=== PATIENT | male | born 1955 | race Hispanic/Latino ===

== ENCOUNTER 2017-01-28 00:27 | Emergency (ER) | payer MEDICARE, MEDICAID ==
[2017-01-28 01:55] VITALS: TEMP 97.5
[2017-01-28 01:56] VITALS: BMI 33.2
[2017-01-28] MEDS ORDERED: Sodium Chloride 0.9% 1,000 ML IV STA (02:27)
[2017-01-28] MEDS ORDERED: Morphine 2 mg/ml ISec IVP STA ×2 (02:27→06:29)
--- NOTE | 2017-01-28 02:47 | ED PDOC ---
Arrival/HPI - General Chief Complaint: Male Genitourinary Time Seen by Provider: 01/28/17 02:13 Historian: Patient - History of Present Illness Narrative History of Present Illness (Text): 01/28/17 02:44 Tuan Davison is a 61 year old male, with a history of CAD, CHF, hypertension, COPD, and diverticulitis, presents to the emergency department complaining of bilateral flank pain for past 3 days. Reports that symptoms are different from diverticulitis symptoms. Reports of occasional dysuria. Denies fever, chills, headache, dizziness, nausea, vomiting, diarrhea, abdominal pain, or any other complaints at this time. Time/Duration: < week (2-3 days ) Symptom Onset: Gradual Symptom Course: Unchanged Severity Level: Mild Activities at Onset: Light Context: Home Past Medical History - Provider Review Nursing Documentation Reviewed: Yes - Infectious Disease Hx of Infectious Diseases: None - Tetanus Immunization Tetanus Immunization: Unknown - Reproductive Currently : No - Cardiac Hx Cardiac Disorders: Yes Hx Angina: Yes Hx Congestive Heart Failure: Yes Hx Hypertension: Yes - Pulmonary Hx Respiratory Disorders: Yes Hx Chronic Obstructive Pulmonary Disease (COPD): Yes - Neurological Hx Neurological Disorder: No - HEENT Hx HEENT Disorder: No - Renal Hx Renal Disorder: Yes Hx Kidney Stones: Yes - Endocrine/Metabolic Hx Endocrine Disorders: Yes Hx Diabetes Mellitus Type 2: (pt denies) - Hematological/Oncological Hx Blood Disorders: Yes Hx Hepatitis C: Yes - Integumentary Hx Dermatological Disorder: No - Musculoskeletal/Rheumatological Hx Musculoskeletal Disorders: Yes Hx Back Pain: Yes Hx Falls: No - Gastrointestinal Hx Gastrointestinal Disorders: Yes Hx Gastroesophageal Reflux: Yes - Genitourinary/Gynecological Hx Genitourinary Disorders: No - Psychiatric Hx Psychophysiologic Disorder: Yes Hx Anxiety: Yes Hx Bipolar Disorder: Yes Hx Depression: Yes Hx Substance Use: No - Past Surgical History Past Surgical History: Non-Contributing - Surgical History Hx Appendectomy: Yes Hx Tonsillectomy: Yes Other/Comment: Tonsillectomy - Anesthesia Hx Anesthesia: Yes Hx Anesthesia Reactions: No Hx Malignant Hyperthermia: No - Suicidal Assessment Feels Threatened In Home Enviroment: No Family/Social History - Physician Review Nursing Documentation Reviewed: Yes Family/Social History: No Known Family HX Smoking Status: Light Smoker < 10 Cigarettes Daily Hx Alcohol Use: No Hx Substance Use: No Hx Substance Use Treatment: No Allergies/Home Meds Allergies/Adverse Reactions: Allergies No Known Allergies Allergy (Verified 01/28/17 01:54) Home Medications: Home Meds Medication Instructions Recorded Confirmed Lisinopril/Hydrochlorothiazide 12.5 mg PO DAILY 09/13/14 11/07/16 [Lisinopril-Hctz 20-12.5 mg Tab] Methylphenidate HCl [Ritalin] 60 mg PO DAILY 09/13/14 11/07/16 Montelukast [Singulair] 10 mg PO HS 09/13/14 11/07/16 diaZEpam [Valium] 10 mg PO BID 09/14/15 11/07/16 fluvoxaMINE [Luvox] 100 mg PO BID 09/14/15 11/07/16 Enalapril Maleate [Vasotec] 10 mg PO DAILY 06/10/16 11/07/16 Review of Systems - Physician Review All systems were reviewed & negative as marked: Yes - Review of Systems Constitutional: Normal. absent: Fatigue, Fevers Respiratory: Normal. absent: SOB, Cough Cardiovascular: Normal. absent: Chest Pain Musculoskeletal: Other (bilateral flank pain ) Neurological: Normal. absent: Headache, Dizziness Psychiatric: Normal Physical Exam Vital Signs Reviewed: Yes Vital Signs Temp Pulse Resp BP Pulse Ox 01/28/17 06:59 55 L 18 152/88 H 100 01/28/17 03:30 56 L 18 142/74 99 01/28/17 01:55 97.5 F L 55 L 20 119/77 98 Temperature: Afebrile Blood Pressure: Normal Pulse: Regular Respiratory Rate: Normal Appearance: Positive for: Well-Appearing, Non-Toxic, Comfortable Pain Distress: None Mental Status: Positive for: Alert and Oriented X 3 - Systems Exam Head: Present: Atraumatic, Normocephalic Pupils: Present: PERRL Extroacular Muscles: Present: EOMI Conjunctiva: Present: Normal Respiratory/Chest: Present: Clear to Auscultation, Good Air Exchange. No: Respiratory Distress, Accessory Muscle Use Cardiovascular: Present: Regular Rate and Rhythm, Normal S1, S2. No: Murmurs Abdomen: Present: Normal Bowel Sounds. No: Tenderness, Distention, Peritoneal Signs, Rebound, Guarding Back: Present: CVA Tenderness (b/l CVA tenderness ) Neurological: Present: GCS=15, CN II-XII Intact, Speech Normal, Motor Func Grossly Intact, Normal Sensory Function Skin: Present: Warm, Dry, Normal Color. No: Rashes Psychiatric: Present: Alert, Oriented x 3, Normal Insight, Normal Concentration Medical Decision Making ED Course and Treatment: 01/28/17 02:48 Impression: A 61 year old male who presents to the emergency department complaining of bilateral flank pain for past 3 days. Plan: -- CT abdomen pelvis -- Labs -- Morphine -- IV fluids -- Urinalysis -- Reassess and disposition Progress Notes 01/28/17 05:50 CT abdomen pelvis reviewed: IMPRESSION: 1. Cholelithiasis. A faint gallstone is noted measuring 22 mm. 2. Borderline retroperitoneal periaortic and pericaval adenopathy and mild pelvic adenopathy along the lateral pelvic sidewalls which is similar to the prior study of 12/07/2016. Borderline inguinal adenopathy is also noted. 3. Mild colonic diverticulosis without diverticulitis. 01/28/17 07:17 Case was d/w PMD .Accepts to his service for further management. - Lab Interpretations Lab Results: 01/28/17 03:16 01/28/17 03:16 Lab Results 01/28/17 06:00: Urine Color Yellow, Urine Appearance Clear, Urine pH 6.0, Ur Specific Friedens 1.020, Urine Protein Negative, Urine Glucose (UA) Negative, Urine Ketones Negative, Urine Blood Negative, Urine Nitrate Negative, Urine Bilirubin Negative, Urine Urobilinogen 0.2, Ur Leukocyte Esterase Negative 01/28/17 03:16: WBC 13.0 H, RBC 4.59, Hgb 14.5, Hct 40.7 L, MCV 88.7, MCH 31.6, MCHC 35.6, RDW 14.2, Plt Count 199, MPV 10.0, Sodium 140, Potassium 3.6, Chloride 100, Carbon Dioxide 31, Anion Gap 13, BUN 23 H, Creatinine 0.8, Est GFR ( Amer) > 60, Est GFR (Non-Af Amer) > 60, Random Glucose 96, Calcium 10.0, Total Bilirubin 0.5, AST 29, ALT 26, Alkaline Phosphatase 59, Total Protein 6.9, Albumin 4.1, Globulin 2.9, Albumin/Globulin Ratio 1.4, Lipase 68 I have reviewed the lab results: Yes - RAD Interpretation Narrative RAD Interpretations (Text): EXAM: CT Abdomen and Pelvis Without Intravenous Contrast. FINDINGS: Lower thorax: Minimal bibasilar atelectasis or scar. ABDOMEN: Liver: Unremarkable. Gallbladder and bile ducts: There is a faint gallstone in the gallbladder measuring 22 mm. No ductal dilation. Pancreas: Unremarkable. No ductal dilation. Spleen: Splenic cyst with some peripheral calcifications measuring 15 mm which is similar. Adrenals: Unremarkable. No mass. Kidneys and ureters: There are bilateral renal cysts measuring up to 10.4 cm on the right. No obstructing stones. No hydronephrosis. Stomach and bowel: Mild colonic diverticulosis without diverticulitis. No obstruction. Appendix: There are no changes of appendicitis. A normal appendix is not seen. PELVIS: Bladder: Unremarkable. No stones. Reproductive: Unremarkable as visualized. ABDOMEN and PELVIS: Intraperitoneal space: Unremarkable. No free air. No significant fluid collection. Bones/joints: Degenerative spondylosis of the lumbar spine. No acute fracture. No dislocation. Soft tissues: Unremarkable. Vasculature: Unremarkable. No abdominal aortic aneurysm. Lymph nodes: Borderline retroperitoneal periaortic and pericaval adenopathy which is similar to the prior study. Mild pelvic adenopathy along the lateral pelvic sidewalls which is similar to the prior study. Borderline inguinal adenopathy, similar. IMPRESSION: 1. Cholelithiasis. A faint gallstone is noted measuring 22 mm. 2. Borderline retroperitoneal periaortic and pericaval adenopathy and mild pelvic adenopathy along the lateral pelvic sidewalls which is similar to the prior study of 12/07/2016. Borderline inguinal adenopathy is also noted. 3. Mild colonic diverticulosis without diverticulitis. Radiology Orders: 01/28/17 02:25 ABD & PELVIS W/O PO OR IV CONT [CT] Stat Replenishment Buyer: Radiologist - Medication Orders Current Medication Orders: Discontinued Medications Sodium Chloride (Sodium Chloride 0.9%) 1,000 mls @ 999 mls/hr IV .Q1H1M STA Stop: 01/28/17 03:27 Last Admin: 01/28/17 03:15 Dose: 999 MLS/HR eMAR Start Stop Document 01/28/17 03:15 JG (Rec: 01/28/17 03:15 JG [id number]) Intravenous Solution Start Date 03/21/17 Start Time 03:15 End Date 01/28/17 End time 04:16 Total Infusion Time 61 Morphine Sulfate (Morphine) 2 mg IVP STAT STA Stop: 01/28/17 02:28 Last Admin: 01/28/17 03:20 Dose: 2 MG MAR Pain Assessment Document 01/28/17 03:20 FJA (Rec: 01/28/17 03:22 [id number][facility] Pain Reassessment Is this a pain reassessment? No Sleep Is patient sleeping during reassessment? No Presence of Pain Presence of Pain Yes Pain Scale Used Pain Scale Used Numeric Location Left, Right or Bilateral Bilateral Pain Location Body Site Lumbar Description Description Constant Intensity of Pain at present 7 Acceptable Level of Pain 0 Variations/Patterns constant Pain Behavior Guarding Aggravating Factors Changing Position IVP Administration Document 01/28/17 03:20 FJ (Rec: 01/28/17 03:22 [id number]) Charges for Administration # of IVP Administrations 1 Morphine Sulfate (Morphine) 2 mg IVP STAT STA Stop: 01/28/17 06:30 Last Admin: 01/28/17 06:44 Dose: 2 MG MAR Pain Assessment Document 01/28/17 06:44 JAIDEN (Rec: 01/28/17 06:44 [id number] Pain Reassessment Is this a pain reassessment? No Sleep Is patient sleeping during reassessment? No Presence of Pain Presence of Pain Yes IVP Administration Document 01/28/17 06:44 JAIDEN (Rec: 01/28/17 06:44 [id number] Charges for Administration # of IVP Administrations 1 - Scribe Statement The provider has reviewed the documentation as recorded by the Christine Gomez Provider Attestation: All medical record entries made by the Christine were at my direction and personally dictated by me. I have reviewed the chart and agree that the record accurately reflects my personal performance of the history, physical exam, medical decision making, and the department course for this patient. I have also personally directed, reviewed, and agree with the discharge instructions and disposition. Disposition/Present on Arrival - Present on Arrival Any Indicators Present on Arrival: No History of DVT/PE: No History of Uncontrolled Diabetes: No Urinary Catheter: No History of Decub. Ulcer: No History Surgical Site Infection Following: None - Disposition Have Diagnosis and Disposition been Completed?: Yes Diagnosis: Intractable back pain, Adenopathy Disposition: HOSPITALIZED Disposition Time: 07:17 Patient Plan: Observation Patient Problems: Current Active Problems Problem Status Diagnosed Constipation, acute Acute Intractable abdominal pain Acute Leukocytosis Acute Condition: STABLE
[2017-01-28 03:39] LABS: HEMATOCRIT 40.7 % (42.0-52.0); MEAN CELL VOLUME 88.7 fL (80.0-105.0); MEAN CORPUSCULAR HEMOGLOBIN 31.6 pg (25.0-35.0); MEAN CORPUSCULAR HGB CONC 35.6 g/dl (31.0-37.0); RED CELL DISTRIBUTION WIDTH 14.2 % (11.5-14.5)
[2017-01-28 03:44] LABS: ALB/GLOB RATIO 1.4 (1.1-1.8); ALKALINE PHOSPHATASE 59 U/L (38-133); ALT/SGPT 26 U/L (7-56); AST/SGOT 29 U/L (15-59); BILIRUBIN,TOTAL 0.5 mg/dL (0.2-1.3); BLOOD UREA NITROGEN 23 mg/dL (7-21); CARBON DIOXIDE 31 mmol/L (21-33); CHLORIDE 100 mmol/L (95-110); GFR AFRICAN-AMERICAN > 60; GLUCOSE,RANDOM 96 mg/dL (70-110); LIPASE 68 U/L (23-300); POTASSIUM 3.6 mmol/L (3.6-5.0); SODIUM 140 mmol/L (132-148); TOTAL PROTEIN 6.9 g/dL (5.8-8.3)
[2017-01-28 06:13] LABS: URINE BILIRUBIN NEGATIVE (NEGATIVE); URINE BLOOD NEGATIVE (NEGATIVE); URINE GLUCOSE (UA) NEGATIVE (NEGATIVE); URINE KETONE NEGATIVE (NEGATIVE); URINE LEUKOCYTE ESTERASE NEGATIVE Leu/uL (NEGATIVE); URINE PROTEIN NEGATIVE mg/dL (<30 mg/dL); URINE UROBILINOGEN 0.2 E.U./dL (<1 E.U./dL)
[2017-01-28 06:17] LABS: URINE APPEARANCE CLEAR (CLEAR); URINE COLOR YELLOW (YELLOW)
[2017-01-28 06:59] VITALS: RESP 18
[2017-01-28 07:44] VITALS: BP 147/101; PULSE 62; O2SAT 97
--- NOTE | 2017-01-28 12:29 | HP ---
CHIEF COMPLAINT AND HISTORY OF PRESENT ILLNESS: This is a 61-year-old male who is coming into the [facility] with complaints of flank pain. He says that he has this pain on and off. He has no complaint s of any headaches, no dizziness, no nausea, no vomiting, no dysuria, frequency. No weakness in the arms or the legs. No fevers or chills. He says the pain is better. He has a history of coronary di sease, CHF, hypertension, COPD. The patient also has anxiety and depression. The patient has a hist ory of lymph nodes and with a mild elevation in white count, he was advised to get evaluated. He wis hes to leave the hospital and to do an outpatient followup. I will give him the number for Dr. Blair for further management of his adenopathy. He has had a colonoscopy that was negative. He says he f eels well. He is ready to go home. ALLERGIES: No known drug allergies. HOME MEDICATIONS: Have been reviewed. 1. Lisinopril/hydrochlorothiazide. 2. Ritalin. 3. Singulair. 4. Valium. PAST MEDICAL HISTORY: 1. Nephrolithiasis. 2. COPD. 3. GERD. 4. Bipolar disorder. 5. Hypertension. 6. Hypogonadism. 7. Splenomegaly. 8. Adenopathy. 9. Hepatitis C. 10. Leukocytosis. 11. Diverticulitis. PAST SURGICAL HISTORY: He has had an: 1. Appendectomy. 2. Tonsillectomy. SOCIAL HISTORY: He smokes half a pack per day. He was advised to quit smoking. He is disabled, he is not working. PHYSICAL EXAMINATION: VITAL SIGNS: He has a temperature of , pulse of 62, blood pressure 147/101, respirations 18, O2 saturation 97%, height is 6 feet, weight is 245 pounds, BMI is 33.2. GENERAL: Patient lying in bed, flat, and in no apparent distress. HEAD AND NECK EXAM: Atraumatic, normocephalic. Conjunctivae are pink. Throat clear and mouth with moist mucosa. Oropharynx benign. EYES: Extraocular movements are intact. PERRLA. NECK: Supple. No JVD, thyromegaly, or adenopathy. No bruits. HEART: S1 and S2 regular rate and rhythm. No murmurs, rubs, or gallops. LUNGS: Clear to auscultation bilaterally. No wheezing rales or rhonchi appreciated. No retraction s on exam. ABDOMEN: Soft, nontender, nondistended. Bowel sounds are positive in all quadrants. No rebound. No hepatosplenomegaly. EXTREMITIES: No cyanosis, clubbing, or edema. NEURO: No facial asymmetry, tongue is midline, no uvula deviation. Power is 5/5 in upper extremity and 5/5 in lower extremity. Sensation is normal in upper extremity and lower extremity. PSYCH: Awake, alert, oriented x3. No anxiety or depression symptoms. Good insight. Normal affec t. : No CVA tenderness VASCULAR: 2+ pulses in carotid and pedal pulses. SKIN: No erythema or abnormal nodules noted. SPINE: Normal curvature. LYMPHADENOPATHY: No anterior cervical or posterior cervical adenopathy. No inguinal adenopathy. LABORATORY DATA: White count of 13. His lab history shows that his white count has been elevated si nce 07/2015. Chemistry shows a sodium of 140, creatinine is 0.8. His urine shows blood that is negative, nitrites negative, bilirubin is negative. CT of the abdomen done and shows cholelithiasis, there is borderline retroperitoneal, periaortic and pelvic adenopathy. It is similar to the prior study in 11/2016. ASSESSMENT: 1. Abdominal adenopathy. 2. Hepatitis C. 3. Gastroesophageal reflux disease. 4. Chronic obstructive pulmonary disease. 5. Nephrolithiasis. 6. Bipolar disorder. 7. Hypertension. 8. Hypogonadism. 9. Splenomegaly. PLAN: The patient is currently comfortable. The patient is going to be discharged home to follow up as an outpatient. I did give him the number for Dr. Blair. The patient has adenopathy with leukocy tosis, unknown etiology. He has had a colonoscopy. The patient is currently comfortable. He is goi ng to continue his home medications at home. Layo Kaur MD cc: [id number] TT: 01/28/2017 12:29:01
--- NOTE | 2017-01-28 15:58 | CT ---
PROCEDURE: CT Abdomen and Pelvis without intravenous contrast HISTORY: flank pain COMPARISON: 12/07/2016. CT abdomen and pelvis. TECHNIQUE: Unenhanced study. Neither oral nor intravenous contrast administered. Radiation dose: Total exam DLP = 1192.60 mGy-cm. FINDINGS: LOWER THORAX: Unremarkable. LIVER: Unremarkable. No gross lesion or ductal dilatation. GALLBLADDER AND BILE DUCTS: Cholelithiasis without CT evidence of acute cholecystitis. PANCREAS: Unremarkable. No gross lesion or ductal dilatation. SPLEEN: Top-normal spleen. Partially calcified simple cysts reyes again identified. ADRENALS: Unremarkable. No mass. KIDNEYS AND URETERS: Unremarkable. No hydronephrosis. No solid mass. Incidental finding(s): Stable bilateral renal cysts the largest projects off the lower pole of the right kidney measuring 7.8 cm. VASCULATURE: Unremarkable. No aortic aneurysm. BOWEL: Unremarkable. No obstruction. No gross mural thickening. Diverticulosis without an acute inflammatory component or other associated pathologic process. APPENDIX: Prior appendectomy. PERITONEUM: Unremarkable. No free fluid. No free air. LYMPH NODES: Stable retroperitoneal pelvic and bilateral inguinal lymphadenopathy. BLADDER: Unremarkable. REPRODUCTIVE: Unremarkable. BONES: Stable 1 stable level degenerative change. OTHER FINDINGS: None. IMPRESSION: No acute findings related to/accounting for the clinical presentation. No significant interval change compared to the prior examination(s). Concordant results (preliminary interpretation) provided by [facility]. Procedure Completed: 04:15. Preliminary ([facility]) Report: Dictated and Authenticated: 05:22. Final Interpretation: 15:56. January 28, 2017.
== END 2017-01-28 08:24 | disposition short-term general hospital (02) ==
LOC: ED 00:27 → UNDOADMOB 07:18 → ERH 07:18 → ED 08:24
DX: M54.9 Dorsalgia, unspecified (principal); R59.9 Enlarged lymph nodes, unspecified; J44.9 Chronic obstructive pulmonary disease, unspecified; I10 Essential (primary) hypertension; F17.210 Nicotine dependence, cigarettes, uncomplicated
CPT/HCPCS: 74176; 80053; 81003; 83690; 85027; 96361; 96374; 96376; 99284; J2270; J7040

== ENCOUNTER 2017-04-23 12:00 | Emergency (ER) | payer MEDICARE, MEDICAID ==
[2017-04-23 12:01] VITALS: BMI 33.2
[2017-04-23 12:15] VITALS: BP 150/90; PULSE 64; RESP 16; TEMP 97.5; O2SAT 96
--- NOTE | 2017-04-23 12:22 | ED PDOC ---
Arrival/HPI - General Chief Complaint: Back Pain Time Seen by Provider: 04/23/17 12:05 Historian: Patient - History of Present Illness Narrative History of Present Illness (Text): 04/23/17 12:10 62 y/o male, pmh including htn/chronic lower back pain/diverticulitis/gall stone , nkda, c/o chronic lower back pain and out of percocet 10/325. Pt. stated that he has chronic lower back pain, controlled with the percocet 10/325, out of the percocet with the last dose yesterday, no new injury or fall, no numbness or tingling, no urinary bowel incontinence or retention, no urinary symptoms, no other medical or psychological complaints. Past Medical History - Provider Review Nursing Documentation Reviewed: Yes - Infectious Disease Hx of Infectious Diseases: None - Tetanus Immunization Tetanus Immunization: Unknown - Reproductive Currently : No - Cardiac Hx Cardiac Disorders: Yes Hx Angina: Yes Hx Congestive Heart Failure: Yes Hx Hypertension: Yes - Pulmonary Hx Respiratory Disorders: Yes Hx Chronic Obstructive Pulmonary Disease (COPD): Yes - Neurological Hx Neurological Disorder: No - HEENT Hx HEENT Disorder: No - Renal Hx Renal Disorder: Yes Hx Kidney Stones: Yes - Endocrine/Metabolic Hx Endocrine Disorders: Yes Hx Diabetes Mellitus Type 2: (pt denies) - Hematological/Oncological Hx Blood Disorders: Yes Hx Hepatitis C: Yes - Integumentary Hx Dermatological Disorder: No - Musculoskeletal/Rheumatological Hx Musculoskeletal Disorders: Yes Hx Back Pain: Yes Hx Falls: No - Gastrointestinal Hx Gastrointestinal Disorders: Yes Hx Gastroesophageal Reflux: Yes - Genitourinary/Gynecological Hx Genitourinary Disorders: No - Psychiatric Hx Psychophysiologic Disorder: Yes Hx Anxiety: Yes Hx Bipolar Disorder: Yes Hx Depression: Yes Hx Substance Use: No - Past Surgical History Past Surgical History: Non-Contributing - Surgical History Hx Appendectomy: Yes Hx Tonsillectomy: Yes Other/Comment: Tonsillectomy - Anesthesia Hx Anesthesia: Yes - Suicidal Assessment Feels Threatened In Home Enviroment: No Family/Social History - Physician Review Nursing Documentation Reviewed: Yes Family/Social History: Unknown Family HX Smoking Status: Light Smoker < 10 Cigarettes Daily Hx Alcohol Use: No Hx Substance Use: No Hx Substance Use Treatment: No Allergies/Home Meds Allergies/Adverse Reactions: Allergies No Known Allergies Allergy (Verified 01/28/17 01:54) Home Medications: Home Meds Medication Instructions Recorded Confirmed Lisinopril/Hydrochlorothiazide 12.5 mg PO DAILY 09/13/14 11/07/16 [Lisinopril-Hctz 20-12.5 mg Tab] Methylphenidate HCl [Ritalin] 60 mg PO DAILY 09/13/14 11/07/16 Montelukast [Singulair] 10 mg PO HS 09/13/14 11/07/16 diaZEpam [Valium] 10 mg PO BID 09/14/15 11/07/16 fluvoxaMINE [Luvox] 100 mg PO BID 09/14/15 11/07/16 Enalapril Maleate [Vasotec] 10 mg PO DAILY 06/10/16 11/07/16 Review of Systems - Review of Systems Constitutional: absent: Fatigue, Fevers Eyes: absent: Vision Changes ENT: absent: Hearing Changes Respiratory: absent: SOB, Cough Cardiovascular: absent: Chest Pain Gastrointestinal: absent: Abdominal Pain, Diarrhea, Nausea, Vomiting Musculoskeletal: Back Pain. absent: Arthralgias, Neck Pain, Joint Swelling, Myalgias Physical Exam Vital Signs Reviewed: Yes Vital Signs Temp Pulse Resp BP Pulse Ox 04/23/17 12:11 97.5 F L 64 16 150/90 96 Temperature: Afebrile Blood Pressure: Normal Pulse: Regular Respiratory Rate: Normal Appearance: Positive for: Well-Appearing, Non-Toxic, Comfortable Pain Distress: Severe Mental Status: Positive for: Alert and Oriented X 3 - Systems Exam Head: Present: Atraumatic, Normocephalic Pupils: Present: PERRL Extroacular Muscles: Present: EOMI Conjunctiva: Present: Normal Mouth: Present: Moist Mucous Membranes Neck: Present: Normal Range of Motion Respiratory/Chest: Present: Clear to Auscultation, Good Air Exchange. No: Respiratory Distress, Accessory Muscle Use Cardiovascular: Present: Regular Rate and Rhythm, Normal S1, S2. No: Murmurs Abdomen: Present: Normal Bowel Sounds. No: Tenderness, Distention, Peritoneal Signs Back: Present: Normal Inspection, Other (Thoracci to LS spine: no midline tenderness or step off, FROM without limitation, sensation intact, motor 5/5, no saddling gait, no rash or erythematous. ). No: CVA Tenderness, Midline Tenderness, Paraspinal Tenderness, Pain with Leg Raise, Decubitus Ulcer Upper Extremity: Present: Normal Inspection. No: Cyanosis, Edema Lower Extremity: Present: Normal Inspection. No: Edema Neurological: Present: GCS=15, CN II-XII Intact, Speech Normal Skin: Present: Warm, Dry, Normal Color. No: Rashes Psychiatric: Present: Alert, Oriented x 3, Normal Insight, Normal Concentration Medical Decision Making ED Course and Treatment: 04/23/17 12:38 -I reviewed the [facility] that the patient has over 3 percocets and multiple valium prescriptions. Pt. has no signs of withdrawal in the ER. -I will treat the acute pain with toradol/percocet 10/325 and lidoderm, discharge home with nsaid and lidoderm patch. -Discharge home with mobic, lidoderm patch, follow up with your own pmd Dr. Whaley for follow up regarding about the pain including referring to pain management, return to the ER for any new or worsening signs or symptoms. 04/23/17 13:21 -Pt. feels better and wants to be discharged home, I advised outpatient follow up. - Medication Orders Current Medication Orders: Discontinued Medications Ketorolac Tromethamine (Toradol) 60 mg IM STAT STA Stop: 04/23/17 12:36 Last Admin: 04/23/17 12:51 Dose: 60 mg Lidocaine (Lidoderm) 1 ea TD STAT STA Stop: 04/23/17 12:34 Last Admin: 04/23/17 13:02 Dose: 1 ea Oxycodone/Acetaminophen (Percocet 10/325 Mg Tab) 1 tab PO STAT STA Stop: 04/23/17 12:28 Last Admin: 04/23/17 12:49 Dose: 1 tab - PA / [employer] / Resident Statement /DO has reviewed & agrees with the documentation as recorded. Disposition/Present on Arrival - Present on Arrival Any Indicators Present on Arrival: No History of DVT/PE: No History of Uncontrolled Diabetes: No Urinary Catheter: No History of Decub. Ulcer: No History Surgical Site Infection Following: None - Disposition Have Diagnosis and Disposition been Completed?: Yes Diagnosis: Chronic lower back pain, Pain management Disposition Time: 12:40 Patient Plan: Discharge Patient Problems: Current Active Problems Problem Status Onset Chronic lower back pain Acute Pain management Acute Condition: IMPROVED Additional Instructions: Discharge home with mobic, lidoderm patch, follow up with your own pmd Dr. Choundry for follow up regarding about the pain including referring to pain management, return to the ER for any new or worsening signs or symptoms. Prescriptions: Lidocaine 5% [Lidoderm] 1 patch TOP DAILY PRN #14 patch PRN Reason: Other Meloxicam [Mobic] 15 mg PO DAILY PRN #14 tab PRN Reason: Other Referrals: Layo Kaur MD [Primary Care Provider] - Follow up with primary Alejandra Roberts MD [Staff Provider] - Follow up with primary Forms: WORK NOTE
[2017-04-23] MEDS ORDERED: Oxycodone/Acetaminophen 10/325 mg Tab PO STA (12:27)
[2017-04-23] MEDS ORDERED: Lidocaine 5% Patch TD STA (12:33)
== END 2017-04-23 13:39 | disposition home or self-care (01) ==
LOC: ED 12:00
DX: M54.5 Low back pain (principal); G89.29 Other chronic pain
CPT/HCPCS: 96372; 99281; J1885

== ENCOUNTER 2017-05-05 09:53 | Observation (INO) | payer MEDICARE, MEDICAID ==
[2017-05-05 09:53] VITALS: BMI 33.2
[2017-05-05] MEDS ORDERED: Oxycodone/Acetaminophen 5/325 mg Tab PO STA ×2 (10:27→14:45)
--- NOTE | 2017-05-05 11:09 | RAD ---
HISTORY: weakness COMPARISON: 12/07/2016 FINDINGS: LUNGS: No active pulmonary disease. PLEURA: No significant pleural effusion identified, no pneumothorax apparent. CARDIOVASCULAR: Mild cardiomegaly OSSEOUS STRUCTURES: No significant abnormalities. VISUALIZED UPPER ABDOMEN: Normal. OTHER FINDINGS: None. IMPRESSION: No active disease.
[2017-05-05 11:15] LABS: ADD MANUAL DIFF? NO
[2017-05-05 11:19] LABS: BASO # 0.01 K/mm3 (0.0-2.0); BASO % 0.1 % (0.0-3.0); EOS # 0.2 (0.0-0.7); EOS % 1.1 % (1.5-5.0); GRAN # 5.11 (1.4-6.5); GRAN % 38.4 % (50.0-68.0); HEMATOCRIT 44.9 % (42.0-52.0); LYMPH # 7.3 (1.2-3.4); LYMPH % 54.5 % (22.0-35.0); MEAN CELL VOLUME 88.4 fL (80.0-105.0); MEAN CORPUSCULAR HEMOGLOBIN 31.5 pg (25.0-35.0); MEAN CORPUSCULAR HGB CONC 35.6 g/dl (31.0-37.0); MEAN PLATELET VOLUME 9.7 fl (7.0-11.0); MONO # 0.8 (0.1-0.6); MONO % 5.9 % (1.0-6.0); PLATELET COUNT 174 10^3/uL (120.0-450.0); RED CELL DISTRIBUTION WIDTH 14.6 % (11.5-14.5); WHITE BLOOD COUNT 13.3 10^3/ul (4.5-11.0)
[2017-05-05 11:28] LABS: CHLORIDE 105 mmol/L (98-107)
[2017-05-05 11:30] LABS: ALB/GLOB RATIO 1.5 (1.1-1.8); ALKALINE PHOSPHATASE 72 U/L (38-133); ALT/SGPT 38 U/L (7-56); AST/SGOT 37 U/L (15-59); BILIRUBIN,TOTAL 0.7 mg/dL (0.2-1.3); BLOOD UREA NITROGEN 24 mg/dL (7-21); CALCIUM 10.5 mg/dL (8.4-10.5); CARBON DIOXIDE 27 mmol/L (21-33); GFR AFRICAN-AMERICAN > 60; GLUCOSE,RANDOM 135 mg/dL (70-110); LIPASE 66 U/L (23-300); POTASSIUM 3.6 mmol/L (3.6-5.0); SODIUM 141 mmol/L (132-148); TOTAL PROTEIN 7.5 g/dL (5.8-8.3)
[2017-05-05 11:46] LABS: TROPONIN I < 0.01 ng/mL
[2017-05-05 13:38] LABS: URINE BILIRUBIN NEGATIVE (NEGATIVE); URINE BLOOD NEGATIVE (NEGATIVE); URINE GLUCOSE (UA) NEGATIVE (NEGATIVE); URINE KETONE NEGATIVE (NEGATIVE); URINE LEUKOCYTE ESTERASE NEGATIVE Leu/uL (NEGATIVE); URINE PROTEIN 30 mg/dL (<30 mg/dL); URINE UROBILINOGEN 0.2 E.U./dL (<1 E.U./dL)
[2017-05-05 13:42] LABS: URINE APPEARANCE SL CLOUDY (CLEAR); URINE COLOR YELLOW (YELLOW)
[2017-05-05 13:48] LABS: URINE RBC NEGATIVE /hpf (0-2); URINE WBC NEGATIVE /hpf (0-6)
[2017-05-05] MEDS ORDERED: Sodium Chloride 0.9% 1,000 ML IV STA (14:46)
--- NOTE | 2017-05-05 15:52 | ED PDOC ---
Arrival/HPI - General Chief Complaint: Back Pain Time Seen by Provider: 05/05/17 09:58 Historian: Patient - History of Present Illness Narrative History of Present Illness (Text): 05/05/17 15:49 62-year-old male presents today with generalized weakness and chronic back pain. Patient states since last night he's been feeling weak. Patient states he called his primary care physician and he was supposed to go into the office today but when he woke up today he felt so weak that he wasn't going to be able to make it to the doctor's office so he came to the emergency room. He denies chest pain or shortness of breath. He denies abdominal pain. Denies nausea or vomiting. He is complaining of worsening low back pain. He denies numbness weakness or tingling in the lower extremities. Patient states he has been taking pain pill without improvement of his symptoms. Patient states he just doesn't feel right. Time/Duration: Other (1 day) Quality: Unable to Describe Severity Level: 5 Past Medical History - Provider Review Nursing Documentation Reviewed: Yes - Travel History Have you recently traveled outside [place] w/in the past 3 mons?: No - Infectious Disease Hx of Infectious Diseases: None - Tetanus Immunization Tetanus Immunization: Unknown - Reproductive Currently : No - Cardiac Hx Cardiac Disorders: Yes Hx Angina: Yes Hx Congestive Heart Failure: Yes Hx Hypertension: Yes - Pulmonary Hx Respiratory Disorders: Yes Hx Chronic Obstructive Pulmonary Disease (COPD): Yes - Neurological Hx Neurological Disorder: No - HEENT Hx HEENT Disorder: No - Renal Hx Renal Disorder: Yes Hx Kidney Stones: Yes - Endocrine/Metabolic Hx Endocrine Disorders: Yes Hx Diabetes Mellitus Type 2: (pt denies) - Hematological/Oncological Hx Blood Disorders: Yes Hx Hepatitis C: Yes - Integumentary Hx Dermatological Disorder: No - Musculoskeletal/Rheumatological Hx Musculoskeletal Disorders: Yes Hx Back Pain: Yes Hx Falls: No - Gastrointestinal Hx Gastrointestinal Disorders: Yes Hx Gastroesophageal Reflux: Yes - Genitourinary/Gynecological Hx Genitourinary Disorders: No - Psychiatric Hx Psychophysiologic Disorder: Yes Hx Anxiety: Yes Hx Bipolar Disorder: Yes Hx Depression: Yes Hx Substance Use: No - Past Surgical History Past Surgical History: Non-Contributing - Surgical History Hx Appendectomy: Yes Hx Tonsillectomy: Yes Other/Comment: Tonsillectomy - Anesthesia Hx Anesthesia: Yes - Suicidal Assessment Feels Threatened In Home Enviroment: No Family/Social History - Physician Review Nursing Documentation Reviewed: Yes Family/Social History: Unknown Family HX Smoking Status: Light Smoker < 10 Cigarettes Daily Hx Alcohol Use: No Hx Substance Use: No Hx Substance Use Treatment: No Allergies/Home Meds Allergies/Adverse Reactions: Allergies No Known Allergies Allergy (Verified 05/05/17 10:07) Home Medications: Home Meds Medication Instructions Recorded Confirmed Lisinopril/Hydrochlorothiazide 12.5 mg PO DAILY 09/13/14 11/07/16 [Lisinopril-Hctz 20-12.5 mg Tab] Methylphenidate HCl [Ritalin] 60 mg PO DAILY 09/13/14 11/07/16 Montelukast [Singulair] 10 mg PO HS 09/13/14 11/07/16 diaZEpam [Valium] 10 mg PO BID 09/14/15 11/07/16 fluvoxaMINE [Luvox] 100 mg PO BID 09/14/15 11/07/16 Enalapril Maleate [Vasotec] 10 mg PO DAILY 06/10/16 11/07/16 Review of Systems - Review of Systems Constitutional: Fatigue, Other (generalized weakness). absent: Fevers Respiratory: absent: SOB, Cough Cardiovascular: absent: Chest Pain, Palpitations Gastrointestinal: absent: Abdominal Pain, Diarrhea, Nausea, Vomiting Genitourinary Male: absent: Dysuria, Frequency, Hematuria Musculoskeletal: Back Pain Neurological: Other. absent: Dizziness, Focal Weakness Physical Exam Vital Signs Reviewed: Yes Vital Signs Temp Pulse Resp BP Pulse Ox 05/05/17 09:54 98 F 75 16 151/101 H 98 Temperature: Afebrile Blood Pressure: Hypertensive Pulse: Regular Respiratory Rate: Normal Appearance: Positive for: Well-Appearing, Non-Toxic, Comfortable Pain Distress: None Mental Status: Positive for: Alert and Oriented X 3 - Systems Exam Head: Present: Atraumatic Mouth: Present: Moist Mucous Membranes Neck: Present: Normal Range of Motion Respiratory/Chest: Present: Clear to Auscultation, Good Air Exchange. No: Respiratory Distress, Accessory Muscle Use Cardiovascular: Present: Regular Rate and Rhythm, Normal S1, S2. No: Murmurs Abdomen: Present: Normal Bowel Sounds. No: Tenderness, Distention, Peritoneal Signs, Rebound, Guarding Back: Present: Normal Inspection, Midline Tenderness, Paraspinal Tenderness. No : Pain with Leg Raise Upper Extremity: Present: Normal Inspection, Normal ROM Lower Extremity: Present: Normal Inspection, Normal ROM Neurological: Present: GCS=15, Speech Normal, Motor Func Grossly Intact, Normal Sensory Function Skin: Present: Warm, Dry, Normal Color. No: Rashes Psychiatric: Present: Alert, Oriented x 3 Medical Decision Making ED Course and Treatment: 05/05/17 16:01 Patient is nontoxic well appearing with stable vital signs presenting generalized weakness and back pain CBC wbc; 13.3 CMP bun; 24 glucose; 135 trop; wnl ekg; normal sinus rhythm at [address] elevations normal intervals cxr; wnl Urinalysis wnl pt refused ct of abd/pelvis; Patient reassessment:pt still c/o pain in back and weakness after percocet. additional percocet given, toradol added. case discussed with dr. kaur; will admit observational status to med/surg for generalized weakness and intractable back pain. Discussed all results with patient in depth Impression: Generalized weakness, intractable back pain Admit observational status to MedSurg Reassessment Condition: Unchanged - Lab Interpretations Lab Results: 05/05/17 11:05 05/05/17 11:05 Lab Results 05/05/17 13:16: Urine Color Yellow, Urine Appearance Sl cloudy, Urine pH 6.0, Ur Specific [place] >= 1.030, Urine Protein 30 H, Urine Glucose (UA) Negative, Urine Ketones Negative, Urine Blood Negative, Urine Nitrate Negative, Urine Bilirubin Negative, Urine Urobilinogen 0.2, Ur Leukocyte Esterase Negative, Urine RBC Negative, Urine WBC Negative, Hyaline Casts 0 - 2, Urine Other Usperm 05/05/17 11:05: WBC 13.3 H, RBC 5.08, Hgb 16.0, Hct 44.9, MCV 88.4, MCH 31.5, MCHC 35.6, RDW 14.6 H, Plt Count 174, MPV 9.7, Gran % 38.4 L, Lymph % (Auto) 54.5 H, [place] % (Auto) 5.9, Eos % (Auto) 1.1 L, Baso % (Auto) 0.1, Gran # 5.11, Lymph # 7.3 H, [place] # 0.8 H, Eos # 0.2, Baso # 0.01 05/05/17 11:05: Sodium 141, Potassium 3.6, Chloride 105, Carbon Dioxide 27, Anion Gap 13, BUN 24 H, Creatinine 1.0, Est GFR ( Amer) > 60, Est GFR ( Non-Af Amer) > 60, Random Glucose 135 H, Calcium 10.5, Total Bilirubin 0.7, AST 37, ALT 38, Alkaline Phosphatase 72, Lactate Dehydrogenase 518, Total Creatine Kinase 188, Troponin I < 0.01, Total Protein 7.5, Albumin 4.5, Globulin 3.0, Albumin/Globulin Ratio 1.5, Lipase 66 - RAD Interpretation Radiology Orders: 05/05/17 10:26 CHEST PORTABLE [RAD] Stat - Medication Orders Current Medication Orders: Discontinued Medications Sodium Chloride (Sodium Chloride 0.9%) 1,000 mls @ 999 mls/hr IV .Q1H1M STA Stop: 05/05/17 15:46 Last Admin: 05/05/17 15:29 Dose: 999 mls/hr Iohexol (Omnipaque 350 150 Ml) Confirm Administered Dose 150 ml .ROUTE .STK-MED ONE Stop: 05/05/17 15:16 Ketorolac Tromethamine (Toradol) 30 mg IVP STAT STA Stop: 05/05/17 14:46 Last Admin: 05/05/17 15:28 Dose: 30 mg Oxycodone/Acetaminophen (Percocet 5/325 Mg Tab) 1 tab PO STAT STA Stop: 05/05/17 10:28 Last Admin: 05/05/17 11:09 Dose: 1 tab Oxycodone/Acetaminophen (Percocet 5/325 Mg Tab) 1 tab PO STAT STA Stop: 05/05/17 14:46 Last Admin: 05/05/17 15:29 Dose: 1 tab Disposition/Present on Arrival - Present on Arrival Any Indicators Present on Arrival: No History of DVT/PE: No History of Uncontrolled Diabetes: No Urinary Catheter: No History of Decub. Ulcer: No History Surgical Site Infection Following: None - Disposition Have Diagnosis and Disposition been Completed?: Yes Diagnosis: Leukocytosis, Back pain, Generalized weakness Disposition: HOSPITALIZED Disposition Time: 15:00 Patient Plan: Observation Patient Problems: Current Active Problems Problem Status Onset Back pain Acute Generalized weakness Acute Leukocytosis Acute Condition: FAIR Discharge Instructions (ExitCare): Weakness (ED) Referrals: Layo Kaur MD [Primary Care Provider] - Follow up with primary
--- NOTE | 2017-05-05 16:45 | CARD ---
APPROVED REPORT EKG Measurement Heart [id number] [place] [id number] <Conclusion> Normal sinus rhythm Normal ECG
[2017-05-05 17:10] VITALS: O2SAT 100
[2017-05-05] MEDS ORDERED: Oxycodone/Acetaminophen 5/325 mg Tab PO PRN (20:21)
[2017-05-06 08:13] VITALS: RESP 20; TEMP 97.7
[2017-05-06 10:40] VITALS: BP 141/93; PULSE 62
== END 2017-05-06 12:49 | disposition home or self-care (01) ==
LOC: ED 09:53 → ERH 15:22 → 5RSO 17:44
PROVIDERS: ADMIT Internal Medicine Nephrology; ATTEND Internal Medicine Nephrology
DX: M54.9 Dorsalgia, unspecified (principal); R53.1 Weakness; D72.829 Elevated white blood cell count, unspecified; I10 Essential (primary) hypertension; J44.9 Chronic obstructive pulmonary disease, unspecified; K21.9 Gastro-esophageal reflux disease without esophagitis
CPT/HCPCS: 71010; 80053; 81001; 82550; 83615; 83690; 84484; 85025; 93005; 96360; 96374; 99283; G0378; J1885; J7040

== ENCOUNTER 2017-10-02 13:40 | Emergency (ER) | payer MEDICARE, MEDICAID ==
[2017-10-02 14:04] VITALS: BMI 32.3
--- NOTE | 2017-10-02 14:26 | ED PDOC ---
Arrival/HPI - General Chief Complaint: Male Genitourinary Time Seen by Provider: 10/02/17 13:45 Historian: Patient - History of Present Illness Narrative History of Present Illness (Text): 10/02/17 14:12 A 62 year old male, whose past medical history includes kidney stones, hypertension, and bipolar disorder, presents to the emergency department for painful urination and a latasha on left ankle. The patient reports he has had painful urination for 3 days and his frequency has increased. He also notes a latasha on his left ankle, he denies any trauma to the area. The patient denies any chest pain, fevers, blood in urine, abdominal pain, or any other complaints at this time. Time/Duration: < week (x 3 days) Symptom Onset: Gradual Symptom Course: Unchanged Quality: Burning Context: Home Past Medical History - Provider Review Nursing Documentation Reviewed: Yes - Infectious Disease Hx of Infectious Diseases: None - Tetanus Immunization Tetanus Immunization: Unknown - Reproductive Currently : No - Cardiac Hx Cardiac Disorders: Yes Hx Angina: Yes Hx Congestive Heart Failure: Yes Hx Hypertension: Yes - Pulmonary Hx Respiratory Disorders: Yes Hx Chronic Obstructive Pulmonary Disease (COPD): Yes - Neurological Hx Neurological Disorder: No - HEENT Hx HEENT Disorder: No - Renal Hx Renal Disorder: Yes Hx Kidney Stones: Yes - Endocrine/Metabolic Hx Endocrine Disorders: Yes Hx Diabetes Mellitus Type 2: (pt denies) - Hematological/Oncological Hx Blood Disorders: Yes Hx Hepatitis C: Yes Other/Comment: Leukemia (2017) - Integumentary Hx Dermatological Disorder: No - Musculoskeletal/Rheumatological Hx Musculoskeletal Disorders: Yes Hx Back Pain: Yes Hx Falls: No - Gastrointestinal Hx Gastrointestinal Disorders: Yes Hx Gastroesophageal Reflux: Yes - Genitourinary/Gynecological Hx Genitourinary Disorders: No - Psychiatric Hx Psychophysiologic Disorder: Yes Hx Anxiety: Yes Hx Bipolar Disorder: Yes Hx Depression: Yes Hx Substance Use: No - Past Surgical History Past Surgical History: Non-Contributing - Surgical History Hx Appendectomy: Yes Other/Comment: Tonsillectomy - Anesthesia Hx Anesthesia: Yes - Suicidal Assessment Feels Threatened In Home Enviroment: No Family/Social History - Physician Review Nursing Documentation Reviewed: Yes Family/Social History: No Known Family HX Smoking Status: Current Some Days Smoker Hx Alcohol Use: No Hx Substance Use: No Hx Substance Use Treatment: No Allergies/Home Meds Allergies/Adverse Reactions: Allergies No Known Allergies Allergy (Verified 05/05/17 10:07) Home Medications: Home Meds Medication Instructions Recorded Confirmed Lisinopril/Hydrochlorothiazide 12.5 mg PO DAILY 09/13/14 11/07/16 [Lisinopril-Hctz 20-12.5 mg Tab] Methylphenidate HCl [Ritalin] 60 mg PO DAILY 09/13/14 11/07/16 Montelukast [Singulair] 10 mg PO HS 09/13/14 11/07/16 diaZEpam [Valium] 10 mg PO BID 09/14/15 11/07/16 fluvoxaMINE [Luvox] 100 mg PO BID 09/14/15 11/07/16 Enalapril Maleate [Vasotec] 10 mg PO DAILY 06/10/16 11/07/16 Review of Systems - Physician Review All systems were reviewed & negative as marked: Yes - Review of Systems Constitutional: absent: Fevers Cardiovascular: absent: Chest Pain Gastrointestinal: absent: Abdominal Pain Genitourinary Male: Dysuria, Frequency. absent: Hematuria Skin: Other (latasha on left ankle) Physical Exam Vital Signs Reviewed: Yes Vital Signs Temp Pulse Resp BP Pulse Ox 10/02/17 13:41 99.0 F 57 L 18 146/86 97 Temperature: Afebrile Blood Pressure: Normal Pulse: Regular Respiratory Rate: Normal Appearance: Positive for: Well-Appearing, Non-Toxic, Comfortable Pain Distress: None Mental Status: Positive for: Alert and Oriented X 3 - Systems Exam Head: Present: Atraumatic, Normocephalic Pupils: Present: PERRL Extroacular Muscles: Present: EOMI Conjunctiva: Present: Normal Mouth: Present: Moist Mucous Membranes Neck: Present: Normal Range of Motion Respiratory/Chest: Present: Clear to Auscultation, Good Air Exchange. No: Respiratory Distress, Accessory Muscle Use Cardiovascular: Present: Regular Rate and Rhythm, Normal S1, S2. No: Murmurs Abdomen: Present: Normal Bowel Sounds. No: Tenderness, Distention, Peritoneal Signs Genitourinary Male: Present: Normal External Genitalia Back: Present: Normal Inspection Upper Extremity: Present: Normal Inspection. No: Cyanosis, Edema Lower Extremity: Present: Normal Inspection. No: Edema Neurological: Present: GCS=15, CN II-XII Intact, Speech Normal Skin: Present: Warm, Dry, Normal Color, Other (healing scratch on left lateral ankle; no warmth, no tenderness). No: Rashes Psychiatric: Present: Alert, Oriented x 3, Normal Insight, Normal Concentration Medical Decision Making ED Course and Treatment: 10/02/17 14:25 Impression: A 62 year old male with dysuria. Differential Diagnosis included but are not limited to: UTI Plan: -- Chlamydia test -- Urine Culture -- Finger Stick -- Urinalysis -- Reassess and disposition Progress Notes: 10/02/17 16:11 Patient noted to have UTI on UA. Bactrim ordered. Will Rx with Bactrim. Explained to patient that cultures were sent and we will call him if there are any discrepancies. He will follow up with his PMD Dr. Mijares. - Lab Interpretations Lab Results: Lab Results 10/02/17 15:41: Urine Color Yellow, Urine Appearance Cloudy, Urine pH 6.5, Ur Specific [place] 1.025, Urine Protein 100 H, Urine Glucose (UA) Negative, Urine Ketones Negative, Urine Blood Large H, Urine Nitrate Negative, Urine Bilirubin Negative, Urine Urobilinogen 0.2, Ur Leukocyte Esterase Moderate H, Urine RBC 25 - 30, Urine WBC Tntc, Ur Epithelial Cells 0 - 2, Urine Bacteria Few - Scribe Statement Shabnam Lala Provider Scribe Attestation: All medical record entries made by the Scribe were at my direction and personally dictated by me. I have reviewed the chart and agree that the record accurately reflects my personal performance of the history, physical exam, medical decision making, and the department course for this patient. I have also personally directed, reviewed, and agree with the discharge instructions and disposition. Disposition/Present on Arrival - Present on Arrival Any Indicators Present on Arrival: No History of DVT/PE: No History of Uncontrolled Diabetes: No Urinary Catheter: No History of Decub. Ulcer: No History Surgical Site Infection Following: None - Disposition Have Diagnosis and Disposition been Completed?: Yes Diagnosis: UTI (urinary tract infection) Disposition: HOME/ ROUTINE Disposition Time: 16:10 Patient Plan: Discharge Patient Problems: Current Active Problems Problem Status Onset UTI (urinary tract infection) Acute Condition: IMPROVED Discharge Instructions (ExitCare): Urinary Tract Infection in Men (ED) Additional Instructions: Mr Davison, thank you for letting us take care of you today. Your provider was Dr. Desir. You were treated for UTI. The emergency medical care you received today was directed at your acute symptoms. If you were prescribed any medication , please fill it and take as directed. It may take several days for your symptoms to resolve. Return to the Emergency Department if your symptoms worsen , do not improve, or if you have any other problems. Please contact your doctor or call one of the physicians/clinics you have been referred to that are listed on the Patient Visit Information form that is included in your discharge packet. Bring any paperwork you were given at discharge with you along with any medications you are taking to your follow up visit. Our treatment cannot replace ongoing medical care by a primary care provider (PCP) outside of the emergency department. Thank you for allowing the [facility] team to be part of your care today. If you had an X-Ray or CT scan: A Radiologist will review the ED reading if any change in treatment is needed we will contact you. If you had a blood, urine, or wound culture: It will take several days for the results, if any change in treatment is needed we will contact you. If you had an STI test: It will take 48 hours for the results. Please call after 1 week if you have not heard back. Prescriptions: Sulfamethoxazole/Trimethoprim [Bactrim DS 800 mg-160 mg] 1 tab PO BID #6 tab Referrals: Layo Kaur MD [Primary Care Provider] - Follow up with primary Forms: [employer] ([place]istani), WORK NOTE
[2017-10-02 14:41] VITALS: RESP 18; TEMP 99
[2017-10-02 15:52] LABS: PH,URINE 6.5 (4.7-8.0); URINE BILIRUBIN NEGATIVE (NEGATIVE); URINE BLOOD LARGE (NEGATIVE); URINE GLUCOSE (UA) NEGATIVE (NEGATIVE); URINE KETONE NEGATIVE (NEGATIVE); URINE LEUKOCYTE ESTERASE MODERATE Leu/uL (NEGATIVE); URINE PROTEIN 100 mg/dL (<30 mg/dL); URINE UROBILINOGEN 0.2 E.U./dL (<1 E.U./dL)
[2017-10-02 15:59] LABS: URINE APPEARANCE CLOUDY (CLEAR); URINE COLOR YELLOW (YELLOW)
[2017-10-02 16:01] LABS: URINE RBC 25 - 30 /hpf (0-2); URINE WBC TNTC /hpf (0-6)
[2017-10-02 16:02] LABS: URINE BACTERIA FEW (NEG); URINE EPITHELIAL CELLS 0 - 2 /hpf (0-5)
[2017-10-02] MEDS ORDERED: Tmp-Smz 800 mg-160 mg DS Tab PO STA (16:11)
[2017-10-02 16:30] VITALS: BP 155/89; PULSE 54; O2SAT 99
== END 2017-10-02 16:33 | disposition home or self-care (01) ==
LOC: ED 13:40
DX: N39.0 Urinary tract infection, site not specified (principal); I10 Essential (primary) hypertension; J44.9 Chronic obstructive pulmonary disease, unspecified; I50.9 Heart failure, unspecified

== ENCOUNTER 2017-10-06 19:00 | Emergency (ER) | payer MEDICARE, MEDICAID ==
[2017-10-06 20:06] VITALS: BMI 31.1
--- NOTE | 2017-10-06 21:04 | ED PDOC ---
Arrival/HPI - General Chief Complaint: Male Genitourinary Time Seen by Provider: 10/06/17 20:03 Historian: Patient - History of Present Illness Narrative History of Present Illness (Text): 10/06/17 20:59 Tuan Davison is a 62 year old male, whose past medical history includes hypertension, bipolar disorder, and nephrolithiasis, who presents to the Emergency department complaining of nausea and body aches after taking Bactrim, prescribed to him for a UTI. Patient states he was called to have his antibiotics changes and notes he contacted his PMD, who advised him to come to the emergency room. Patient denies any fever, chills, abdominal pain, nausea, vomiting, diarrhea, back pain, headache, or any other complaints. Patient notes some slight dysuria. Patient had urine cultures sent as well as test for chlamydia/gonorrhea, which were negative. Culture sensitivities noted. Symptom Onset: Gradual Symptom Course: Unchanged Activities at Onset: Light Context: Home Past Medical History - Provider Review Nursing Documentation Reviewed: Yes - Infectious Disease Hx of Infectious Diseases: None - Tetanus Immunization Tetanus Immunization: Unknown - Reproductive Currently : No - Cardiac Hx Cardiac Disorders: Yes Hx Angina: Yes Hx Congestive Heart Failure: Yes Hx Hypertension: Yes - Pulmonary Hx Respiratory Disorders: Yes Hx Chronic Obstructive Pulmonary Disease (COPD): Yes - Neurological Hx Neurological Disorder: No - HEENT Hx HEENT Disorder: No - Renal Hx Renal Disorder: Yes Hx Kidney Stones: Yes - Endocrine/Metabolic Hx Endocrine Disorders: Yes Hx Diabetes Mellitus Type 2: (pt denies) - Hematological/Oncological Hx Blood Disorders: Yes Hx Hepatitis C: Yes Other/Comment: Leukemia (2017) - Integumentary Hx Dermatological Disorder: No - Musculoskeletal/Rheumatological Hx Musculoskeletal Disorders: Yes Hx Back Pain: Yes Hx Falls: No - Gastrointestinal Hx Gastrointestinal Disorders: Yes Hx Gastroesophageal Reflux: Yes - Genitourinary/Gynecological Hx Genitourinary Disorders: No - Psychiatric Hx Psychophysiologic Disorder: Yes Hx Anxiety: Yes Hx Bipolar Disorder: Yes Hx Depression: Yes Hx Substance Use: No - Past Surgical History Past Surgical History: Non-Contributing - Surgical History Hx Appendectomy: Yes Other/Comment: Tonsillectomy - Anesthesia Hx Anesthesia: Yes - Suicidal Assessment Feels Threatened In Home Enviroment: No Family/Social History - Physician Review Nursing Documentation Reviewed: Yes Family/Social History: Unknown Family HX Smoking Status: Current Some Days Smoker Hx Alcohol Use: No Hx Substance Use: No Hx Substance Use Treatment: No Allergies/Home Meds Allergies/Adverse Reactions: Allergies No Known Allergies Allergy (Verified 05/05/17 10:07) Home Medications: Home Meds Medication Instructions Recorded Confirmed Lisinopril/Hydrochlorothiazide 12.5 mg PO DAILY 09/13/14 11/07/16 [Lisinopril-Hctz 20-12.5 mg Tab] Methylphenidate HCl [Ritalin] 60 mg PO DAILY 09/13/14 11/07/16 Montelukast [Singulair] 10 mg PO HS 09/13/14 11/07/16 diaZEpam [Valium] 10 mg PO BID 09/14/15 11/07/16 fluvoxaMINE [Luvox] 100 mg PO BID 09/14/15 11/07/16 Enalapril Maleate [Vasotec] 10 mg PO DAILY 06/10/16 11/07/16 Review of Systems - Physician Review All systems were reviewed & negative as marked: Yes - Review of Systems Constitutional: Normal. absent: Fevers Eyes: Normal ENT: Normal Respiratory: Normal. absent: SOB, Cough Cardiovascular: Normal. absent: Chest Pain Gastrointestinal: Nausea. absent: Abdominal Pain, Diarrhea, Vomiting Genitourinary Male: Dysuria. absent: Frequency, Hematuria, Urinary Output Changes Musculoskeletal: Myalgias (+body aches). absent: Back Pain, Neck Pain Skin: Normal. absent: Rash Neurological: Normal. absent: Headache, Dizziness Endocrine: Normal Hemo/Lymphatic: Normal Psychiatric: Normal Physical Exam Vital Signs Reviewed: Yes Vital Signs Temp Pulse Resp BP Pulse Ox 10/06/17 23:24 60 16 143/87 100 10/06/17 20:17 98.9 F 62 18 142/97 H 95 Temperature: Afebrile Blood Pressure: Normal Pulse: Regular Respiratory Rate: Normal Appearance: Positive for: Well-Appearing, Non-Toxic, Comfortable Pain Distress: None Mental Status: Positive for: Alert and Oriented X 3 - Systems Exam Head: Present: Atraumatic, Normocephalic Pupils: Present: PERRL Extroacular Muscles: Present: EOMI Conjunctiva: Present: Normal Mouth: Present: Moist Mucous Membranes Neck: Present: Normal Range of Motion Respiratory/Chest: Present: Clear to Auscultation, Good Air Exchange. No: Respiratory Distress, Accessory Muscle Use Cardiovascular: Present: Regular Rate and Rhythm, Normal S1, S2. No: Murmurs Abdomen: Present: Normal Bowel Sounds. No: Tenderness, Distention, Peritoneal Signs Back: Present: Normal Inspection. No: CVA Tenderness, Midline Tenderness, Paraspinal Tenderness Upper Extremity: Present: Normal Inspection. No: Cyanosis, Edema Lower Extremity: Present: Normal Inspection. No: Edema Neurological: Present: GCS=15, CN II-XII Intact, Speech Normal Skin: Present: Warm, Dry, Normal Color. No: Rashes Psychiatric: Present: Alert, Oriented x 3, Normal Insight, Normal Concentration Medical Decision Making ED Course and Treatment: 10/06/17 20:15 Impression: 62 year old male complaining of nausea/body aches after taking Bactrim, advised to come to ER for antibiotic change. Plan: -- Labs -- UA -- IV fluids -- Reassess and disposition Prior Visits: Notes and results from previous visits were reviewed. On 10/02/2017, pt was seen in the Emergency department for dysuria and left ankle abrasion. Pt was d/c home on Bactrim. Progress Notes: 10/07/17 00:[address] Kaur, who is aware and agrees with plan. States he will follow-up with the pt in his office tomorrow. 10/07/17 01:01 On re-evaluation, patient feels better and is in no acute distress. I have discussed the results and plan with the patient, who expresses understanding. Patient in agreement with plan to be discharged home. Patient is stable for discharge. Patient was instructed to follow up with physician or return if symptoms worsen or new concerning symptoms arise. - Lab Interpretations Lab Results: 10/06/17 22:42 10/06/17 22:42 Lab Results 10/06/17 23:08: Urine Color Yellow, Urine Appearance Clear, Urine pH 6.0, Ur Specific [place] 1.020, Urine Protein Trace H, Urine Glucose (UA) Negative, Urine Ketones Negative, Urine Blood Negative, Urine Nitrate Negative, Urine Bilirubin Negative, Urine Urobilinogen 0.2, Ur Leukocyte Esterase Negative, Urine RBC 0 - 2, Urine WBC 1 - 3, Ur Epithelial Cells 0 - 2, Urine Bacteria Rare 10/06/17 22:42: WBC 12.1 H, RBC 4.84, Hgb 14.9, Hct 44.2, MCV 91.3, MCH 30.8, MCHC 33.7, RDW 15.3 H, Plt Count 206, MPV 10.4 10/06/17 22:42: Sodium 143, Potassium 4.4, Chloride 106, Carbon Dioxide 29, Anion Gap 13, BUN 27 H, Creatinine 1.3, Est GFR ( Amer) > 60, Est GFR ( Non-Af Amer) 56, Random Glucose 89, Calcium 9.8, Total Bilirubin 0.7, AST 30, ALT 35, Alkaline Phosphatase 67, Total Protein 7.0, Albumin 4.1, Globulin 2.9, Albumin/Globulin Ratio 1.4 I have reviewed the lab results: Yes - Medication Orders Current Medication Orders: Ciprofloxacin (Cipro) 500 mg PO ONCE STA PRN Reason: Protocol Stop: 10/07/17 00:59 Discontinued Medications Sodium Chloride (Sodium Chloride 0.9%) 1,000 mls @ 999 mls/hr IV .Q1H1M STA Stop: 10/06/17 22:53 Last Admin: 10/06/17 22:46 Dose: 999 mls/hr eMAR Start Stop Document 10/06/17 22:46 HI (Rec: 10/06/17 22:46 HI [id number]) Intravenous Solution Start Date 10/06/17 Start Time 22:46 Oxycodone/Acetaminophen (Percocet 5/325 Mg Tab) 1 tab PO STAT STA Stop: 10/07/17 00:46 Last Admin: 10/07/17 01:01 Dose: 1 tab MAR Pain Assessment Document 10/07/17 01:01 MP (Rec: 10/07/17 01:02 MP [id number]) Pain Reassessment Is this a pain reassessment? Yes Sleep Is patient sleeping during reassessment? No Presence of Pain Presence of Pain Yes - Scribe Statement The provider has reviewed the documentation as recorded by the Christine Mc Provider Scribe Attestation: All medical record entries made by the Scribe were at my direction and personally dictated by me. I have reviewed the chart and agree that the record accurately reflects my personal performance of the history, physical exam, medical decision making, and the department course for this patient. I have also personally directed, reviewed, and agree with the discharge instructions and disposition. Disposition/Present on Arrival - Present on Arrival Any Indicators Present on Arrival: No History of DVT/PE: No History of Uncontrolled Diabetes: No Urinary Catheter: No History of Decub. Ulcer: No History Surgical Site Infection Following: None - Disposition Have Diagnosis and Disposition been Completed?: Yes Diagnosis: UTI (urinary tract infection) Disposition: HOME/ ROUTINE Disposition Time: 01:01 Patient Plan: Discharge Patient Problems: Current Active Problems Problem Status Onset UTI (urinary tract infection) Acute Condition: GOOD Additional Instructions: Drink plenty of liquids/take meds as prescribed/follow up with your doctor tomorrow Prescriptions: Ciprofloxacin [Cipro] 500 mg PO BID #6 tab Referrals: Layo Kaur MD [Primary Care Provider] - Follow up with primary Forms: [employer] (Finnish)
[2017-10-06] MEDS ORDERED: Sodium Chloride 0.9% 1,000 ML IV STA (21:53)
[2017-10-06 23:06] LABS: ALB/GLOB RATIO 1.4 (1.1-1.8); ALKALINE PHOSPHATASE 67 U/L (38-126); ALT/SGPT 35 U/L (7-56); AST/SGOT 30 U/L (17-59); BILIRUBIN,TOTAL 0.7 mg/dL (0.2-1.3); BLOOD UREA NITROGEN 27 mg/dL (7-21); CALCIUM 9.8 mg/dL (8.4-10.5); CARBON DIOXIDE 29 mmol/L (21-33); CHLORIDE 106 mmol/L (98-107); GFR AFRICAN-AMERICAN > 60; GLUCOSE,RANDOM 89 mg/dL (70-110); POTASSIUM 4.4 mmol/L (3.6-5.0); SODIUM 143 mmol/L (132-148)
[2017-10-06 23:15] LABS: URINE BILIRUBIN NEGATIVE (NEGATIVE); URINE BLOOD NEGATIVE (NEGATIVE); URINE GLUCOSE (UA) NEGATIVE (NEGATIVE); URINE KETONE NEGATIVE (NEGATIVE); URINE LEUKOCYTE ESTERASE NEGATIVE Leu/uL (NEGATIVE); URINE PROTEIN TRACE mg/dL (<30 mg/dL); URINE UROBILINOGEN 0.2 E.U./dL (<1 E.U./dL)
[2017-10-06 23:17] LABS: HEMATOCRIT 44.2 % (42.0-52.0); MEAN CELL VOLUME 91.3 fl (80.0-105.0); MEAN CORPUSCULAR HEMOGLOBIN 30.8 pg (25.0-35.0); MEAN CORPUSCULAR HGB CONC 33.7 g/dl (31.0-37.0); MEAN PLATELET VOLUME 10.4 fl (7.0-11.0); RED CELL DISTRIBUTION WIDTH 15.3 % (11.5-14.5); WHITE BLOOD COUNT 12.1 10^3/ul (4.5-11.0)
[2017-10-06 23:18] LABS: URINE APPEARANCE CLEAR (CLEAR); URINE COLOR YELLOW (YELLOW)
[2017-10-06 23:24] VITALS: O2SAT 100
[2017-10-06 23:52] LABS: URINE EPITHELIAL CELLS 0 - 2 /hpf (0-5); URINE RBC 0 - 2 /hpf (0-2)
[2017-10-06 23:53] LABS: URINE BACTERIA RARE (NEG)
[2017-10-07] MEDS ORDERED: Oxycodone/Acetaminophen 5/325 mg Tab PO STA (00:45)
[2017-10-07 01:20] VITALS: BP 140/82; PULSE 64; RESP 18; TEMP 98.7
== END 2017-10-07 01:15 | disposition home or self-care (01) ==
LOC: ED 19:00
DX: N39.0 Urinary tract infection, site not specified (principal); J44.9 Chronic obstructive pulmonary disease, unspecified; I50.9 Heart failure, unspecified; I10 Essential (primary) hypertension
CPT/HCPCS: 80053; 81001; 85027; 99285; J7040

== ENCOUNTER 2018-03-05 12:07 | Observation (INO) | payer MEDICAID, MEDICARE ==
[2018-03-05] MEDS ORDERED: Sodium Chloride 0.9% 1,000 ML IV STA (12:38)
[2018-03-05] MEDS ORDERED: HYDROmorphone 0.5 mg/0.5 ml ISec IVP STA ×2 (12:39→18:40)
--- NOTE | 2018-03-05 12:46 | ED PDOC ---
Arrival/HPI - General Chief Complaint: GI Problem Time Seen by Provider: 03/05/18 12:29 Historian: Patient - History of Present Illness Narrative History of Present Illness (Text): 03/05/18 12:40 pt p/w + 2 weeks onset of mid abd pain, pain is constant and severe rated at 8/ 10, at time radiating to b/l flanks; pt states intact appetite but is afraid to eat because every time he eats, it would go right thru him and he has complained of daily diarrhea ~ 10 episodes/day; pt states no weight loss, + diffuse body pain/weakness/easily fatigued; pt states no fever/chills/sweats, no cp/sob/palpitations, no numbness/tingling, no urinary changes; pt had seen Dr Carr 2-3 days ago and had lab tests drawn but does not know the results; and Dr Carr suggests patient need outpt F/U with GI pt also states + intermittent dizziness, slightly off balanced, NO room spinning pt states no LOC/Fall/trauma/travel/sick contact pt is here for further eval. pt's without other complaints PCP: Dr Kaur/Bruno pt lives alone Time/Duration: > week (2 weeks) Symptom Onset: Gradual Symptom Course: Worsening Quality: Cramping, Burning Severity Level: 8, Severe Activities at Onset: Rest Context: Home Past Medical History - Provider Review Nursing Documentation Reviewed: Yes - Travel History Have you recently traveled outside [place] w/in the past 3 mons?: No - Past History Past History: No Previous - Infectious Disease Hx of Infectious Diseases: None - Tetanus Immunization Tetanus Immunization: Unknown - Cardiac Hx Cardiac Disorders: Yes Hx Angina: Yes Hx Congestive Heart Failure: Yes Hx Hypertension: Yes - Pulmonary Hx Respiratory Disorders: Yes Hx Chronic Obstructive Pulmonary Disease (COPD): Yes - Neurological Hx Neurological Disorder: No - HEENT Hx HEENT Disorder: No - Renal Hx Renal Disorder: Yes Hx Kidney Stones: Yes - Endocrine/Metabolic Hx Endocrine Disorders: Yes Hx Diabetes Mellitus Type 2: (pt denies) - Hematological/Oncological Hx Blood Disorders: Yes Hx Hepatitis C: Yes Other/Comment: Leukemia (2017) - Integumentary Hx Dermatological Disorder: No - Musculoskeletal/Rheumatological Hx Musculoskeletal Disorders: Yes Hx Back Pain: Yes Hx Falls: No - Gastrointestinal Hx Gastrointestinal Disorders: Yes Hx Gastroesophageal Reflux: Yes - Genitourinary/Gynecological Hx Genitourinary Disorders: No - Psychiatric Hx Psychophysiologic Disorder: Yes Hx Anxiety: Yes Hx Bipolar Disorder: Yes Hx Depression: Yes Hx Substance Use: No - Past Surgical History Past Surgical History: Non-Contributing - Surgical History Hx Appendectomy: Yes Hx Tonsillectomy: Yes Other/Comment: Tonsillectomy - Anesthesia Hx Anesthesia: Yes - Suicidal Assessment Feels Threatened In Home Enviroment: No Family/Social History - Physician Review Nursing Documentation Reviewed: Yes Family/Social History: No Known Family HX Smoking Status: Heavy Smoker > 10 Cigarettes Daily Hx Alcohol Use: No Hx Substance Use: No Hx Substance Use Treatment: No Allergies/Home Meds Allergies/Adverse Reactions: Allergies No Known Allergies Allergy (Verified 03/05/18 12:17) Home Medications: Home Meds Medication Instructions Recorded Confirmed Lisinopril/Hydrochlorothiazide 12.5 mg PO DAILY 09/13/14 11/07/16 [Lisinopril-Hctz 20-12.5 mg Tab] Methylphenidate HCl [Ritalin] 60 mg PO DAILY 09/13/14 11/07/16 Montelukast [Singulair] 10 mg PO HS 09/13/14 11/07/16 diaZEpam [Valium] 10 mg PO BID 09/14/15 11/07/16 fluvoxaMINE [Luvox] 100 mg PO BID 09/14/15 11/07/16 Enalapril Maleate [Vasotec] 10 mg PO DAILY 06/10/16 11/07/16 Review of Systems - Review of Systems Constitutional: Fatigue. absent: Weight Change, Fevers Eyes: Normal ENT: Normal Respiratory: Normal Cardiovascular: Normal Gastrointestinal: Abdominal Pain, Stool Changes, Diarrhea, Appetite Changes. absent: Nausea, Vomiting Genitourinary Male: Normal Musculoskeletal: Back Pain Skin: Normal Neurological: Dizziness. absent: Headache Endocrine: Normal Hemo/Lymphatic: Normal Psychiatric: Normal Physical Exam Vital Signs Reviewed: Yes Vital Signs Temp Pulse Resp BP Pulse Ox 03/05/18 12:11 97.3 F L 71 19 158/92 H 98 Temperature: Afebrile Blood Pressure: Hypertensive Pulse: Regular Respiratory Rate: Normal Appearance: Positive for: Well-Appearing, Non-Toxic, Uncomfortable, Other (alert /awake, cooperative, NAD, resting in bed, follows command with ease, GCS = 15, oriented x 3) Pain Distress: None Mental Status: Positive for: Alert and Oriented X 3 - Systems Exam Head: Present: Atraumatic, Normocephalic Pupils: Present: PERRL, Other (no nystagmus, no photophobia, sclera anicteric) Extroacular Muscles: Present: EOMI Conjunctiva: Present: Normal Ears: Present: Normal Mouth: Present: Dry, Other (poor dentitions, mild dry oral mucosa, no dysphonia , no stridor/exudate/lesions) Pharnyx: Present: Normal Nose (External): Present: Atraumatic Nose (Internal): Present: Normal Inspection Neck: Present: Normal Range of Motion, Trachea Midline, Other (no midline tenderness, no step off). No: Meningeal Signs, MIDLINE TENDERNESS, Paraspinal Tenderness Respiratory/Chest: Present: Clear to Auscultation, Good Air Exchange, Other ( CTA b/l, no w/r/r, no tachypenia). No: Respiratory Distress, Accessory Muscle Use Cardiovascular: Present: Regular Rate and Rhythm, Normal S1, S2. No: Murmurs Abdomen: Present: Normal Bowel Sounds, Other (well nourished male, + diffuse mid abd tenderness, no matthews's sign, no mcburney's point tenderness, no masses/ rebound/guarding/rigidity) Back: Present: Normal Inspection. No: CVA Tenderness, Midline Tenderness, Paraspinal Tenderness Upper Extremity: Present: Normal Inspection, Normal ROM, NORMAL PULSES, Neurovascularly Intact, Capillary Refill < 2s Lower Extremity: Present: Normal Inspection, NORMAL PULSES, Normal ROM, Neurovascularly Intact, Capillary Refill < 2 s. No: Edema, Zita's Sign, Deformity Neurological: Present: GCS=15, CN II-XII Intact, Speech Normal Skin: Present: Warm, Normal Color, Other (cap refill ~ 1sec, no ulcerations, no petechiae/pallor) Psychiatric: Present: Alert, Oriented x 3, Normal Insight, Normal Concentration Medical Decision Making ED Course and Treatment: 03/05/18 12:49 Impression: weakness/fatigue/abd pain/diarrhea x 2 weeks i have consider all the differential diagnosis regarding pt's chief medical complaints/clinical findings, including but are not limited to: r/o gallstones, r/o diverticulitis, r/o dehydration A/P: weakness/fatigue, abd pain, + diarrhea - labs - stool culture? - ua - us, ? CT - supportive care - observe/reevaluation 03/05/18 14:[address] Kaur, made aware, agrees with ED mgt/txt; recommends consults w/ Dr. Aviles and Dr. Schaeffer, GI and general surgery consults respectively; Dr Kaur will admit patient 03/05/18 14:20 pt is comfortable, states pain is now 3/10 pt + hungry pt is made aware of his medical results pt agrees with admission General surg resident/team contacted, made aware, will see patient pt will be made NPO for now; awaiting Surg to evaluate patient for possible abx treatment Re-evaluation Time: 14:35 Reassessment Condition: Improved - Lab Interpretations Lab Results: 03/05/18 13:10 03/05/18 13:10 Lab Results 03/05/18 13:10: pO2 57 H, VBG pH 7.34, VBG pCO2 56.0, VBG HCO3 30.2 H, VBG Total CO2 31.9 H, VBG O2 Sat (Calc) 92.3 H, VBG Base Excess 3.1 H, VBG Potassium 4.1, Sodium 141.0, Chloride 107.0, Glucose 190 H, Lactate 1.2, FiO2 21.0, Venous Blood Potassium 4.1 03/05/18 13:10: Sodium 145, Chloride 106, Potassium 4.1, Carbon Dioxide 29, Anion Gap 14, BUN 16, Creatinine 1.0, Est GFR ( Amer) > 60, Est GFR (Non- Af Amer) > 60, Random Glucose 183 H, Calcium 10.1, Total Bilirubin 0.2, AST 28, ALT 35, Alkaline Phosphatase 73, Total Protein 6.8, Albumin 4.1, Globulin 2.7, Albumin/Globulin Ratio 1.5, Lipase 72 03/05/18 13:10: PT 10.7, INR 0.93, APTT 27.8 03/05/18 13:10: WBC 14.6 H D, RBC 4.70, Hgb 14.3, Hct 41.6 L, MCV 88.5, MCH 30.4 , MCHC 34.4, RDW 14.6 H, Plt Count 269, MPV 9.7, Gran % 40.7 L, Lymph % (Auto) 55.4 H, [place] % (Auto) 2.6, Eos % (Auto) 1.1 L, Baso % (Auto) 0.2, Gran # 5.93, Lymph # (Auto) 8.1 H, [place] # (Auto) 0.4, Eos # (Auto) 0.2, Baso # (Auto) 0.03 I have reviewed the lab results: Yes Interpretation: Abnormal lab values (elevated WBCs, otherwise WNL) - RAD Interpretation Narrative RAD Interpretations (Text): 03/05/2018 14:05 US abdomen- Creator : Dick Hamilton MD FINDINGS: LIVER: The liver exhibits normal size measuring approximately 16 cm in CC dimension. Liver demonstrates smooth contour and normal echogenicity of the liver parenchyma. No mass seen on images presented. No gross intrahepatic bile duct dilatation. GALLBLADDER: At least 1 large approximately 2.4 cm shadowing intraluminal gallbladder calculus. No evidence of pericholecystic soft fluid collections or sonographic Matthews sign COMMON BILE DUCT: Measures 8.0 mm. No stones. No dilatation. PANCREAS: The pancreas is not visualized due to body habitus and bowel gas. RIGHT KIDNEY: Measures 12.4 x 6.6 x 6.9cm. Normal echogenicity. No calculus, mass, or hydronephrosis. There are at least 4 cysts present. There is a cyst seen in the upper pole measuring approximately 1.1 in cm greatest dimension with at least 3 in the lower pole measuring 1.6, and 2 larger cysts in the lower pole measuring 11.22 and 5.2 cm in greatest dimensions respectively. LEFT KIDNEY: Measures 12.1 x7 0.3 x 5.5cm. Normal echogenicity. No calculus, mass, or hydronephrosis. . There are at least renal cyst present. There is a cyst seen in the upper pole measuring nearly 1 cm greatest dimension, the, another in the mid - lower pole measuring approximately 1.8 cm the greatest dimension, and a 3rd in the lower pole measuring approximately 1.0 cm greatest dimension. . SPLEEN: Spleen is mildly enlarged measuring approximately 15 cm in greatest dimension. No obvious splenic mass or collection seen on images presented AORTA: No aneurysmal dilatation. IVC: Unremarkable. IMPRESSION: Cholelithiasis. Mild dilatation of the common bile duct measuring approximately 8 mm. Pancreas not visualized due to body habitus and bowel gas. There are multiple bilateral renal cysts, with the 2 largest cysts located in the lower pole of the right kidney measuring 11.2 and 5.2 cm in greatest dimension respectively. Radiology Orders: 03/05/18 12:38 ABDOMEN COMPLETE [US] Stat Literary Writer: Radiologist - EKG Interpretation EKG Interpretation (Text): 03/05/18 14:43 NSR at 65 bpm, normal axis, no ectopy, inverted T in leads III/F, V1, no st changes, BORDERLINE EKG; unchanged compare with old ekg 04/2017 Interpreted by ED Physician: Yes Type: 12 lead EKG Comparison: Similar to previous EKG - Medication Orders Current Medication Orders: Sodium Chloride (Sodium Chloride 0.9%) 1,000 mls @ 100 mls/hr IV .Q10H STA Stop: 03/05/18 22:37 Last Admin: 03/05/18 13:01 Dose: 100 mls/hr eMAR Start Stop Document 03/05/18 13:01 MS (Rec: 03/05/18 13:03 MS [id number]) Intravenous Solution Start Date 03/05/18 Start Time 13:02 Discontinued Medications Famotidine (Pepcid) 20 mg IVP STAT STA Stop: 03/05/18 12:39 Last Admin: 03/05/18 13:03 Dose: 20 mg IVP Administration Document 03/05/18 13:03 MS (Rec: 03/05/18 13:03 MS [id number]) Charges for Administration # of IVP Administrations 1 Hydromorphone HCl (Dilaudid) 1 mg IVP STAT STA Stop: 03/05/18 12:40 Last Admin: 03/05/18 13:03 Dose: 1 mg MAR Pain Assessment Document 03/05/18 13:03 MS (Rec: 03/05/18 13:04 MS [id number]) Pain Reassessment Is this a pain reassessment? No Sleep Is patient sleeping during reassessment? No Presence of Pain Presence of Pain Yes Pain Scale Used Pain Scale Used Numeric Location Pain Location Body Site Abdomen Description Description Constant Intensity of Pain at present 8 Pain Behavior Irritability Withdrawal from Touch IVP Administration Document 03/05/18 13:03 MS (Rec: 03/05/18 13:04 MS [id number]) Charges for Administration # of IVP Administrations 2 Disposition/Present on Arrival - Present on Arrival Any Indicators Present on Arrival: No History of DVT/PE: No History of Uncontrolled Diabetes: No Urinary Catheter: No History of Decub. Ulcer: No History Surgical Site Infection Following: None - Disposition Have Diagnosis and Disposition been Completed?: Yes Diagnosis: Biliary colic, Intractable abdominal pain, Fatigue, Diarrhea Disposition: HOSPITALIZED Disposition Time: 14:25 Patient Plan: Admission Patient Problems: Current Active Problems Problem Status Onset Biliary colic Acute Diarrhea Acute Fatigue Acute Intractable abdominal pain Acute Condition: STABLE
[2018-03-05 13:13] LABS: VENOUS BLOOD GAS BASE EXCESS 3.1 mmol/L (0.0-2.0); VENOUS BLOOD GAS PO2 57 mm/Hg (30-55); VENOUS BLOOD PH 7.34 (7.32-7.43)
[2018-03-05 13:14] LABS: BASO # 0.03 K/mm3 (0.0-2.0); BASO % 0.2 % (0.0-3.0); EOS # 0.2 (0.0-0.7); EOS % 1.1 % (1.5-5.0); GRAN # 5.93 (1.4-6.5); GRAN % 40.7 % (50.0-68.0); HEMOGLOBIN 14.3 g/dL (14.0-18.0); LYMPH # 8.1 (1.2-3.4); LYMPH % 55.4 % (22.0-35.0); MEAN CELL VOLUME 88.5 fl (80.0-105.0); MEAN CORPUSCULAR HEMOGLOBIN 30.4 pg (25.0-35.0); MEAN CORPUSCULAR HGB CONC 34.4 g/dl (31.0-37.0); MEAN PLATELET VOLUME 9.7 fl (7.0-11.0); MONO # 0.4 (0.1-0.6); MONO % 2.6 % (1.0-6.0); RBC 4.7 10^6/uL (3.5-6.1); RED CELL DISTRIBUTION WIDTH 14.6 % (11.5-14.5); WHITE BLOOD COUNT 14.6 10^3/ul (4.5-11.0)
[2018-03-05 13:23] LABS: INR 0.93 (0.93-1.08); PARTIAL THROMBOPLASTIN TIME 27.8 Seconds (25.1-36.5); PROTHROMBIN TIME 10.7 SECONDS (9.4-12.5)
[2018-03-05 13:24] LABS: ALB/GLOB RATIO 1.5 (1.1-1.8); ALBUMIN 4.1 g/dL (3.0-4.8); ALT/SGPT 35 U/L (7-56); AST/SGOT 28 U/L (17-59); BLOOD UREA NITROGEN 16 mg/dL (7-21); CALCIUM 10.1 mg/dL (8.4-10.5); GFR AFRICAN-AMERICAN > 60; GFR NON-AFRICAN AMERICAN > 60; LIPASE 72 U/L (23-300)
--- NOTE | 2018-03-05 14:03 | US ---
HISTORY: Epigastric pain ; rule out gallstones. COMPARISON: Comparison made with CT scan abdomen pelvis 01/28/2017 an abdominal ultrasound 10/12/2015. TECHNIQUE: Sonographic evaluation of the abdomen. FINDINGS: LIVER: The liver exhibits normal size measuring approximately 16 cm in CC dimension. Liver demonstrates smooth contour and normal echogenicity of the liver parenchyma. No mass seen on images presented. No gross intrahepatic bile duct dilatation. GALLBLADDER: At least 1 large approximately 2.4 cm shadowing intraluminal gallbladder calculus. No evidence of pericholecystic soft fluid collections or sonographic Matthews sign COMMON BILE DUCT: Measures 8.0 mm. No stones. No dilatation. PANCREAS: The pancreas is not visualized due to body habitus and bowel gas. RIGHT KIDNEY: Measures 12.4 x 6.6 x 6.9cm. Normal echogenicity. No calculus, mass, or hydronephrosis. There are at least 4 cysts present. There is a cyst seen in the upper pole measuring approximately 1.1 in cm greatest dimension with at least 3 in the lower pole measuring 1.6, and 2 larger cysts in the lower pole measuring 11.22 and 5.2 cm in greatest dimensions respectively. LEFT KIDNEY: Measures 12.1 x7 0.3 x 5.5cm. Normal echogenicity. No calculus, mass, or hydronephrosis. . There are at least renal cyst present. There is a cyst seen in the upper pole measuring nearly 1 cm greatest dimension, the, another in the mid - lower pole measuring approximately 1.8 cm the greatest dimension, and a 3rd in the lower pole measuring approximately 1.0 cm greatest dimension. . SPLEEN: Spleen is mildly enlarged measuring approximately 15 cm in greatest dimension. No obvious splenic mass or collection seen on images presented AORTA: No aneurysmal dilatation. IVC: Unremarkable. OTHER FINDINGS: None. IMPRESSION: Cholelithiasis. Mild dilatation of the common bile duct measuring approximately 8 mm. Pancreas not visualized due to body habitus and bowel gas There are multiple bilateral renal cysts, with the 2 largest cysts located in the lower pole of the right kidney measuring 11.2 and 5.2 cm in greatest dimension respectively. .
--- NOTE | 2018-03-05 15:07 | CP.PCM.CON ---
History of Present Illness - History of Present Illness History of Present Illness: Surgery- Cholelithiasis HPI- Pt. is a 63 y.o male who came in with a complaint of stomach pain and generalized body aches which began 2 weeks ago. Pt. states he had a sick contact in the past 2 weeks a friend who was presenting with the same symptoms. Pt. states abdominal pain is diffuse and associated with nonbloody diarrhea. Pt. states he went to his PCP at onset of his symptoms and was given Viberzi which helped with his diarrhea but not the abdominal pain. An ultrasound done in the ED found an approximate 2.4cm gallstone with no evidence of pericholecystic fluid. Pt. denied any symptoms including RUQ pain, fevers, chills, headaches, nausea, hematemesis, hematuria, dysuria and vomiting. pt knows about the h/o gallstones. PMH- Bipolar disorder, ADHD, Depression, HTN PSH- Appendectomy, tonsillectomy SH- Smokes a half a pack per day (since the age of 14 y.o-49 yrs old) FH- Mother- from colon CA at 42 y.o Review of Systems - Review of Systems Review of Systems: See HPI Past Patient History - Infectious Disease Hx of Infectious Diseases: None - Tetanus Immunizations Tetanus Immunization: Unknown - Past Medical History & Family History Past Medical History?: Yes - Past Social History Smoking Status: Heavy Smoker > 10 Cigarettes Daily - CARDIAC Hx Cardiac Disorders: Yes Hx Angina: Yes Hx Congestive Heart Failure: Yes Hx Hypertension: Yes - PULMONARY Hx Respiratory Disorders: Yes Hx Chronic Obstructive Pulmonary Disease (COPD): Yes - NEUROLOGICAL Hx Neurological Disorder: No - HEENT Hx HEENT Problems: No - RENAL Hx Chronic Kidney Disease: Yes Hx Kidney Stones: Yes - ENDOCRINE/METABOLIC Hx Endocrine Disorders: Yes Hx Diabetes Mellitus Type 2: (pt denies) - HEMATOLOGICAL/ONCOLOGICAL Hx Blood Disorders: Yes Hx Hepatitis C: Yes Other/Comment: Leukemia (2017) - INTEGUMENTARY Hx Dermatological Problems: No - MUSCULOSKELETAL/RHEUMATOLOGICAL Hx Musculoskeletal Disorders: Yes Hx Back Pain: Yes Hx Falls: No - GASTROINTESTINAL Hx Gastrointestinal Disorders: Yes Hx Gastroesophageal Reflux: Yes - GENITOURINARY/GYNECOLOGICAL Hx Genitourinary Disorders: No - PSYCHIATRIC Hx Psychophysiologic Disorder: Yes Hx Anxiety: Yes Hx Bipolar Disorder: Yes Hx Depression: Yes Hx Substance Use: No - SURGICAL HISTORY Hx Appendectomy: Yes Hx Tonsillectomy: Yes Other/Comment: Tonsillectomy - ANESTHESIA Hx Anesthesia: Yes Meds Allergies/Adverse Reactions: Allergies Allergy/AdvReac Type Severity Reaction Status Date / Time No Known Allergies Allergy Verified 03/05/18 12:17 - Medications Medications: Current Medications Sodium Chloride (Sodium Chloride 0.9%) 1,000 mls @ 100 mls/hr IV .Q10H STA Stop: 03/05/18 22:37 Last Admin: 03/05/18 13:01 Dose: 100 mls/hr Physical Exam - Constitutional Appears: No Acute Distress - Head Exam Head Exam: NORMAL INSPECTION, NORMOCEPHALIC - Eye Exam Eye Exam: EOMI, Normal appearance, PERRL Pupil Exam: NORMAL ACCOMODATION, PERRL - ENT Exam ENT Exam: Mucous Membranes Moist, Normal Exam - Neck Exam Neck exam: Positive for: Normal Inspection - Respiratory Exam Respiratory Exam: NORMAL BREATHING PATTERN - Cardiovascular Exam Cardiovascular Exam: REGULAR RHYTHM - GI/Abdominal Exam GI & Abdominal Exam: Soft. absent: Distended, Firm, Guarding, Hernia, Rigid, Tenderness Additional comments: Pt.'s abdomen was soft, nontender and denied any abdominal pain upon palpation. - Extremities Exam Extremities exam: Positive for: normal inspection - Back Exam Back exam: NORMAL INSPECTION - Neurological Exam Neurological exam: Alert, Oriented x3 - Psychiatric Exam Psychiatric exam: Normal Mood - Skin Skin Exam: Dry, Intact, Normal Color, Warm Results - Vital Signs Recent Vital Signs: Last Vital Signs Temp 97.3 F L 03/05/18 12:11 Pulse 71 03/05/18 12:11 Resp 19 03/05/18 12:11 BP 158/92 H 03/05/18 12:11 Pulse Ox 98 03/05/18 12:11 - Labs Result Diagrams: 03/05/18 13:10 03/05/18 13:10 Assessment & Plan - Assessment and Plan (Free Text) Assessment: 63 y.o male admitted for abdominal pain w/ asymptomatic cholelithiasis. Abd pain likely enteritis US: 2.5cm gallstone, no cholecystic fluids or wall thinkening. 6mm CBD Leukocytosis 15 Plan: f/u Abdominal CT scan Recommend outpatient elective cholecystectomy Will Discuss with Dr. Sanchez
--- NOTE | 2018-03-05 16:11 | RAD ---
HISTORY: epigastric pain COMPARISON: 05/05/2017 TECHNIQUE: Chest PA and lateral FINDINGS: LUNGS: No active pulmonary disease. PLEURA: No significant pleural effusion identified. No pneumothorax apparent. CARDIOVASCULAR: Normal. OSSEOUS STRUCTURES: No significant abnormalities. VISUALIZED UPPER ABDOMEN: Normal. OTHER FINDINGS: None. IMPRESSION: No active disease.
--- NOTE | 2018-03-05 16:52 | CT ---
PROCEDURE: CT scan abdomen and pelvis dated the 03/05/2018. HISTORY: Diffuse abdominal pain and diarrhea. Rule out diverticulitis. COMPARISON: Comparison made with prior CT scan abdomen and pelvis 01/28/2017. TECHNIQUE: Contiguous axial images of the abdomen and pelvis performed following oral intravenous injection of approximately 150 cc of Omnipaque 350 contrast material. Additional 2 dimensional sagittal and coronal reformats generated. Radiation dose: Total exam DLP = This CT exam was performed using one or more of the following dose reduction techniques: Automated exposure control, adjustment of the mA and/or kV according to patient size, and/or use of iterative reconstruction technique. FINDINGS: LOWER THORAX: Cardiomegaly. Lung bases clear. No infiltrate effusion or basilar pneumothorax. LIVER: The liver is mildly enlarged measuring nearly 20 cm in CC dimension. There appears to be very mild diffuse fatty hepatic infiltration. No obvious hepatic mass or collection go. The iris portal and splenic veins are opacified. The GALLBLADDER AND BILE DUCTS: Gallbladder is physiologically distended. No. Re- demonstrated is an intraluminal gallbladder calculus. . There is mild prominence of the distal common bile duct at the level of the pancreatic head. PANCREAS: Pancreas is slightly atrophic and fatty replaced. Mid. Pancreatic tail is is visible though does not appear significantly dilated. SPLEEN: Spleen is mildly enlarged measuring nearly 13.3 cm in AP P dimension. . Re- demonstrated is a small approximately the 15 mm rounded low-attenuation lesion within the posterior aspect of the spleen bordering the capsular surface possibly associated with peripheral calcifications. Findings most consistent with a small cyst based on Hounsfield units on the prior noncontrast CT scan of the abdomen and pelvis. There may be a small splenule within the splenic hilar region. ADRENALS: No adrenal lesions. KIDNEYS AND URETERS: Multiple on bilateral renal cysts are again noted the largest of which is exophytic arising from the lower pole measuring approximately 7.8 x 7.3 cm. . No obstructing renal calculi No evidence of hydronephrosis. BLADDER: The urinary bladder is incompletely distended which in part accounts for thick-walled appearance. Muscular hypertrophy presumably contributes. Note that the possibility of a cystitis would be less likely in a male patient though not completely excluded. Clinical correlation recommended. REPRODUCTIVE: The prostate gland unremarkable. APPENDIX: Appendix is not seen with any certainty however there are no inflammatory changes seen in the right lower the quadrant of the abdomen. . Clinical clinical correlation with surgical history recommended. BOWEL: Evaluation of the bowel is somewhat limited due to the lack of oral contrast material. . The stomach is incompletely distended of which in part accounts for thick-walled appearance. Gastritis not excluded. Visualized loops of small bowel exhibit normal contour and caliber. No evidence of acute mechanical small bowel obstruction. There is an elliptical shaped density within 1 of the mid to lower anterior loops of small bowel that could represent pill artifact. Diverticulosis again seen the bulk which arise from the sigmoid and descending colon however no definitive radiographic evidence of acute diverticulitis. PERITONEUM: Unremarkable. No fluid collection. No free air. Small fat containing bilateral inguinal hernias are present. There is also a tiny fat containing umbilical hernia. . There are multiple small nonspecific LYMPH NODES: Multiple small to mildly enlarged retroperitoneal lymph nodes are present. Bilateral inguinal lymph nodes are also again seen. VASCULATURE: Unremarkable. No aortic aneurysm. BONES: Multilevel degenerative spondylosis of the lumbar and lower thoracic spine. There are no acute compression fractures no retropulsed fragments. . There are small sclerotic foci seen in the right iliac bone and the sacrum likely representing small bone islands or osteomas. OTHER FINDINGS: None. IMPRESSION: Mild hepatomegaly with mild fatty hepatic infiltration. Borderline/mild splenomegaly with small splenic cyst associated with peripheral calcification mid. Cholelithiasis. Mild retroperitoneal lymphadenopathy with small to medium size lymph nodes seen in the para-aortic and about the celiac axis which are nonspecific though clinical correlation recommended. . Bilateral inguinal adenopathy also nonspecific. . Multiple bilateral renal cysts. Appendix not seen with certainty however no obvious inflammatory changes right lower quadrant of the abdomen. Clinical correlation with surgical history. Diverticulosis with no definitive radiographic evidence of acute diverticulitis. See above discussion for additional details and findings.
[2018-03-05 18:39] LABS: URINE APPEARANCE CLEAR (CLEAR); URINE BILIRUBIN NEGATIVE (NEGATIVE); URINE BLOOD NEGATIVE (NEGATIVE); URINE COLOR YELLOW (YELLOW); URINE GLUCOSE (UA) NEGATIVE (NEGATIVE); URINE LEUKOCYTE ESTERASE NEGATIVE Leu/uL (NEGATIVE); URINE PROTEIN NEGATIVE mg/dL (<30 mg/dL); URINE UROBILINOGEN 0.2 E.U./dL (<1 E.U./dL)
[2018-03-05] MEDS: Meropenem IV 1 gm in NS 50 ML IVPB SCH (21:37)
[2018-03-06 01:31] VITALS: BMI 32.9
[2018-03-06] MEDS ORDERED: HYDROmorphone 0.5 mg/0.5 ml ISec IVP STA (05:08)
--- NOTE | 2018-03-06 05:19 | CP.PCM.PN ---
Subjective - Date & Time of Evaluation Date of Evaluation: 03/06/18 Time of Evaluation: 05:15 - Subjective Subjective: Patient was seen at bedside. Nurse called to get an order for abdominal pain. He complains of pain all over body. States that IV pain medication he received in ER helped him and demands same. States that after he received antibiotics, abdominal pain in fine, but he has pain all over body. Denies nausea, vomiting, diarrhoea, constipation. Medical record was reviewed. CT abdomen reveals cholelithiasis among many other findings. This 63 year old white male was admitted with mid abdominal pain, biliary colic , intractable abdominal pain. Has PMH of Obesity , CHF, HTN, hepatitis C, lukemia, GERD, depression, anxiety, smoker , tonsillectomy. Objective - Vital Signs/Intake and Output Vital Signs (last 24 hours): Temp Pulse Resp BP Pulse Ox 98.0 F 66 18 155/100 H 96 03/06/18 01:10 03/06/18 01:10 03/06/18 01:10 03/06/18 01:10 03/05/18 23:16 Intake and Output: 03/05/18 03/06/18 18:59 06:59 Intake Total 240 Balance 240 - Medications Medications: Current Medications Hydrochlorothiazide (Microzide) 12.5 mg PO DAILY MAD[facility] Meropenem (Merrem Iv 1 Gm Premix) 50 mls @ 100 mls/hr IVPB Q8 MAD[facility] PRN Reason: Protocol Stop: 03/14/18 22:01 Last Admin: 03/05/18 21:37 Dose: 100 mls/hr Lisinopril (Zestril) 20 mg PO DAILY [facility] [place] Carbonate ([place] Carbonate 300mg) 900 mg PO HS [facility] Last Admin: 03/05/18 22:51 Dose: 900 mg - Labs Labs: PT 10.7 SECONDS (9.4-12.5) 03/05/18 13:10 INR 0.93 (0.93-1.08) 03/05/18 13:10 APTT 27.8 Seconds (25.1-36.5) 03/05/18 13:10 Most Recent Lab Values WBC 14.6 10^3/ul (4.5-11.0) H D 03/05/18 13:10 RBC 4.70 10^6/uL (3.5-6.1) 03/05/18 13:10 Hgb 14.3 g/dL (14.0-18.0) 03/05/18 13:10 Hct 41.6 % (42.0-52.0) L 03/05/18 13:10 MCV 88.5 fl (80.0-105.0) 03/05/18 13:10 MCH 30.4 pg (25.0-35.0) 03/05/18 13:10 MCHC 34.4 g/dl (31.0-37.0) 03/05/18 13:10 RDW 14.6 % (11.5-14.5) H 03/05/18 13:10 Plt Count 269 10^3/uL (120.0-450.0) 03/05/18 13:10 MPV 9.7 fl (7.0-11.0) 03/05/18 13:10 Gran % 40.7 % (50.0-68.0) L 03/05/18 13:10 Lymph % (Auto) 55.4 % (22.0-35.0) H 03/05/18 13:10 [place] % (Auto) 2.6 % (1.0-6.0) 03/05/18 13:10 Eos % (Auto) 1.1 % (1.5-5.0) L 03/05/18 13:10 Baso % (Auto) 0.2 % (0.0-3.0) 03/05/18 13:10 Gran # 5.93 (1.4-6.5) 03/05/18 13:10 Lymph # (Auto) 8.1 (1.2-3.4) H 03/05/18 13:10 [place] # (Auto) 0.4 (0.1-0.6) 03/05/18 13:10 Eos # (Auto) 0.2 (0.0-0.7) 03/05/18 13:10 Baso # (Auto) 0.03 K/mm3 (0.0-2.0) 03/05/18 13:10 PT 10.7 SECONDS (9.4-12.5) 03/05/18 13:10 INR 0.93 (0.93-1.08) 03/05/18 13:10 APTT 27.8 Seconds (25.1-36.5) 03/05/18 13:10 pO2 57 mm/Hg (30-55) H 03/05/18 13:10 VBG pH 7.34 (7.32-7.43) 03/05/18 13:10 VBG pCO2 56.0 (40-60) 03/05/18 13:10 VBG HCO3 30.2 mmol/l (21-28) H 03/05/18 13:10 VBG Total CO2 31.9 mmol.L (22-28) H 03/05/18 13:10 VBG O2 Sat (Calc) 92.3 % (40-65) H 03/05/18 13:10 VBG Base Excess 3.1 mmol/L (0.0-2.0) H 03/05/18 13:10 VBG Potassium 4.1 mmol/L (3.6-5.2) 03/05/18 13:10 Sodium 141.0 mmol/L (132-148) 03/05/18 13:10 Chloride 107.0 mmol/L (98-107) 03/05/18 13:10 Glucose 190 mg/dl (75-110) H 03/05/18 13:10 Lactate 1.2 mmol/L (0.7-2.1) 03/05/18 13:10 FiO2 21.0 % 03/05/18 13:10 Sodium 145 mmol/L (132-148) 03/05/18 13:10 Potassium 4.1 mmol/L (3.6-5.0) 03/05/18 13:10 Chloride 106 mmol/L (98-107) 03/05/18 13:10 Carbon Dioxide 29 mmol/L (21-33) 03/05/18 13:10 Anion Gap 14 (10-20) 03/05/18 13:10 BUN 16 mg/dL (7-21) 03/05/18 13:10 Creatinine 1.0 mg/dl (0.8-1.5) 03/05/18 13:10 Est GFR ( Amer) > 60 03/05/18 13:10 Est GFR (Non-Af Amer) > 60 03/05/18 13:10 Random Glucose 183 mg/dL (70-110) H 03/05/18 13:10 Calcium 10.1 mg/dL (8.4-10.5) 03/05/18 13:10 Total Bilirubin 0.2 mg/dL (0.2-1.3) 03/05/18 13:10 AST 28 U/L (17-59) 03/05/18 13:10 ALT 35 U/L (7-56) 03/05/18 13:10 Alkaline Phosphatase 73 U/L (38-126) 03/05/18 13:10 Total Protein 6.8 g/dL (5.8-8.3) 03/05/18 13:10 Albumin 4.1 g/dL (3.0-4.8) 03/05/18 13:10 Globulin 2.7 gm/dL 03/05/18 13:10 Albumin/Globulin Ratio 1.5 (1.1-1.8) 03/05/18 13:10 Lipase 72 U/L (23-300) 03/05/18 13:10 Venous Blood Potassium 4.1 mmol/L (3.6-5.2) 03/05/18 13:10 Urine Color Yellow (YELLOW) 03/05/18 18:20 Urine Appearance Clear (CLEAR) 03/05/18 18:20 Urine pH 6.0 (4.7-8.0) 03/05/18 18:20 Ur Specific [place] 1.025 (1.005-1.035) 03/05/18 18:20 Urine Protein Negative mg/dL (<30 mg/dL) 03/05/18 18:20 Urine Glucose (UA) Negative mg/dL (NEGATIVE) 03/05/18 18:20 Urine Ketones Negative mg/dL (NEGATIVE) 03/05/18 18:20 Urine Blood Negative (NEGATIVE) 03/05/18 18:20 Urine Nitrate Negative (NEGATIVE) 03/05/18 18:20 Urine Bilirubin Negative (NEGATIVE) 03/05/18 18:20 Urine Urobilinogen 0.2 E.U./dL (<1 E.U./dL) 03/05/18 18:20 Ur Leukocyte Esterase Negative Ye/uL (NEGATIVE) 03/05/18 18:20 - Constitutional Appears: Well, No Acute Distress - Head Exam Head Exam: ATRAUMATIC, NORMAL INSPECTION, NORMOCEPHALIC Additional comments: Obese. - Eye Exam Eye Exam: Normal appearance - ENT Exam ENT Exam: Normal External Ear Exam - Neck Exam Neck Exam: Normal Inspection - Respiratory Exam Respiratory Exam: NORMAL BREATHING PATTERN - Cardiovascular Exam Cardiovascular Exam: absent: JVD - GI/Abdominal Exam GI & Abdominal Exam: absent: Distended - Rectal Exam Rectal Exam: Deferred - Exam Additional comments: Deferred. - Extremities Exam Extremities Exam: Normal Inspection - Back Exam Back Exam: NORMAL INSPECTION - Neurological Exam Neurological Exam: Alert, Awake, Oriented x3 - Psychiatric Exam Psychiatric exam: Normal Affect, Normal Mood - Skin Skin Exam: Normal Color Assessment and Plan - Assessment and Plan (Free Text) Assessment: Abdominal pain. Cholelithiasis. Obesity. CHF. HTN. Hx Hepatitis c. GERD. Anxiety. Depression. Smoker. Plan: Toradol 30 mg IV X 1. Management as per PMD.
[2018-03-06] MEDS: Meropenem IV 1 gm in NS 50 ML IVPB SCH (05:23)
--- NOTE | 2018-03-06 07:49 | CP.PCM.PN ---
Subjective - Date & Time of Evaluation Date of Evaluation: 03/06/18 Time of Evaluation: 07:45 - Subjective Subjective: General Surgery: Dr Schaeffer Pt S&E. Admitted yesterday for abdominal pain. States pain has completely resolved. Currently on regular diet and tolerating. Denies any n/v, f/c. States abdominal pain was in the lower abdomen yesterday and had nagging him for 2 weeks but now it is gone. Has been having diarrhea. Objective - Vital Signs/Intake and Output Vital Signs (last 24 hours): Temp Pulse Resp BP Pulse Ox 98.0 F 66 18 155/100 H 96 03/06/18 01:10 03/06/18 01:10 03/06/18 01:10 03/06/18 01:10 03/05/18 23:16 Intake and Output: 03/06/18 03/06/18 06:59 18:59 Intake Total 420 Output Total 240 Balance 180 - Medications Medications: Current Medications Hydrochlorothiazide (Microzide) 12.5 mg PO DAILY [facility] Meropenem (Merrem Iv 1 Gm Premix) 50 mls @ 100 mls/hr IVPB Q8 [facility]AD[facility] PRN Reason: Protocol Stop: 03/14/18 22:01 Last Admin: 03/06/18 05:23 Dose: 100 mls/hr Lisinopril (Zestril) 20 mg PO DAILY [facility] [place] Carbonate ([place] Carbonate 300mg) 900 mg PO HS [facility] Last Admin: 03/05/18 22:51 Dose: 900 mg - Labs Labs: PT 10.7 SECONDS (9.4-12.5) 03/05/18 13:10 INR 0.93 (0.93-1.08) 03/05/18 13:10 APTT 27.8 Seconds (25.1-36.5) 03/05/18 13:10 - Constitutional Appears: Non-toxic, No Acute Distress - ENT Exam ENT Exam: Mucous Membranes Moist - Respiratory Exam Respiratory Exam: absent: Accessory Muscle Use, Respiratory Distress - Cardiovascular Exam Cardiovascular Exam: REGULAR RHYTHM. absent: Tachycardia - GI/Abdominal Exam GI & Abdominal Exam: Soft. absent: Distended, Firm, Guarding, Tenderness, Hernia, Mass, Rebound Additional comments: could not appreciate inguinal lymphadenopathy - Extremities Exam Extremities Exam: absent: Pedal Edema - Neurological Exam Neurological Exam: Alert, Awake, Oriented x3 - Psychiatric Exam Psychiatric exam: Normal Affect, Normal Mood - Skin Skin Exam: Normal Color, Warm Assessment and Plan - Assessment and Plan (Free Text) Assessment: 63M with undifferentiated abdominal pain (resolved) and chronic leukocytosis Plan: pt on abx as per ID has chronically elevated wbc - followed by Dr Blair no immediate surgical indications and symptoms have resolved possibly due to recurrent diverticulitis - minimal wall thickening on CT will cont to follow will d/w Dr Maksim Rooney, PGY3
--- NOTE | 2018-03-06 08:35 | CARD ---
APPROVED REPORT EKG Measurement Heart [id number] <Conclusion> Poor data quality, interpretation may be adversely affected Normal sinus rhythm Normal ECG
--- NOTE | 2018-03-06 08:55 | CP.PCM.CON ---
History of Present Illness - History of Present Illness History of Present Illness: GI Consult note. Dr. Aviles 63yo M with PMHx of CHF, HTN, COPD, Renal Stones, Hep C, CLL, GERD, Anxiety, Depression, Bipolar disorder here for evaluation of abdominal pain described as dull, diffuse for the past 2 weeks. Associated with diarrhea, non bloody for the same time period. Denies any RUQ pain. No fevers or chills. States that he feels weak, however, he has been feeling much improved over the past day after receiving IV Abx. He states that he has had contact with another woman with similar complaints of diarrhea. He states that he was not able to see his regular PMD and saw Dr. De Jesus instead who prescribed a medication for diarrhea with some improvement in his symptoms. However, he came to the ER as the symptoms did not resolve completely. He denies F/C. No N/V. No headaches. No chest pain. No SOB. No dysuria. He does state that he has had a colonoscopy and an EGD within the last 5 years and both have been normal. PMD: Dr. Villatoro PMHx: CHF, HTN, COPD, Renal Stones, Hep C, CLL, GERD, Anxiety, Depression, Bipolar Disorder PSHx: Appendectomy, Tonsilectomy Family Hx: Mother - Colon CA Social Hx: no Tobacco, No etoh use, no illicit drugs NKDA Review of Systems - Review of Systems All systems: reviewed and no additional remarkable complaints except - Constitutional Constitutional: absent: Chills, Fever - Cardiovascular Cardiovascular: absent: Chest Pain, Dyspnea - Respiratory Respiratory: absent: Dyspnea - Gastrointestinal Gastrointestinal: Abdominal Pain, Diarrhea. absent: Hematemesis, Hematochezia, Melena, Nausea, Vomiting Past Patient History - Infectious Disease Hx of Infectious Diseases: None - Tetanus Immunizations Tetanus Immunization: Unknown - Past Medical History & Family History Past Medical History?: Yes - Past Social History Smoking Status: Light Smoker < 10 Cigarettes Daily - CARDIAC Hx Cardiac Disorders: Yes Hx Angina: Yes Hx Congestive Heart Failure: Yes (pt denies) Hx Hypercholesterolemia: Yes Hx Hypertension: Yes - PULMONARY Hx Respiratory Disorders: Yes Hx Chronic Obstructive Pulmonary Disease (COPD): Yes Hx Pneumonia: Yes (X2) - NEUROLOGICAL Hx Neurological Disorder: No - HEENT Hx HEENT Problems: No - RENAL Hx Chronic Kidney Disease: Yes Hx Kidney Stones: Yes - ENDOCRINE/METABOLIC Hx Endocrine Disorders: Yes Hx Diabetes Mellitus Type 2: (pt denies) - HEMATOLOGICAL/ONCOLOGICAL Hx Blood Disorders: Yes Hx Hepatitis C: Yes Other/Comment: Leukemia (2017) --> Pt denies any history of CA - INTEGUMENTARY Hx Dermatological Problems: No - MUSCULOSKELETAL/RHEUMATOLOGICAL Hx Musculoskeletal Disorders: Yes Hx Back Pain: Yes Hx Falls: No - GASTROINTESTINAL Hx Gastrointestinal Disorders: Yes Hx Gastroesophageal Reflux: Yes - GENITOURINARY/GYNECOLOGICAL Hx Genitourinary Disorders: No - PSYCHIATRIC Hx Psychophysiologic Disorder: Yes Hx Anxiety: Yes Hx Bipolar Disorder: Yes Hx Depression: Yes Hx Substance Use: No - SURGICAL HISTORY Hx Appendectomy: Yes Other/Comment: Tonsillectomy - ANESTHESIA Hx Anesthesia: Yes Meds Home Medications: Home Medication List Medication Instructions Recorded Confirmed Type Amoxicillin/Clavulanate [Augmentin 1 tab PO BID #14 tab 03/06/18 Rx 875 MG-125 MG] Allergies/Adverse Reactions: Allergies Allergy/AdvReac Type Severity Reaction Status Date / Time No Known Allergies Allergy Verified 03/05/18 12:17 - Medications Medications: Current Medications Hydrochlorothiazide (Microzide) 12.5 mg PO DAILY [facility] Meropenem (Merrem Iv 1 Gm Premix) 50 mls @ 100 mls/hr IVPB Q8 [facility]AD[facility]AV PRN Reason: Protocol Stop: 03/14/18 22:01 Last Admin: 03/06/18 05:23 Dose: 100 mls/hr Lisinopril (Zestril) 20 mg PO DAILY [facility] [place] Carbonate ([place] Carbonate 300mg) 900 mg PO HS [facility] Last Admin: 03/05/18 22:51 Dose: 900 mg Physical Exam - Constitutional Appears: Well, Non-toxic, No Acute Distress - Head Exam Head Exam: ATRAUMATIC, NORMAL INSPECTION, NORMOCEPHALIC - Eye Exam Eye Exam: EOMI, Normal appearance. absent: Scleral icterus - ENT Exam ENT Exam: Mucous Membranes Moist - Respiratory Exam Respiratory Exam: NORMAL BREATHING PATTERN. absent: Accessory Muscle Use, Respiratory Distress - Cardiovascular Exam Cardiovascular Exam: RRR. absent: JVD - GI/Abdominal Exam GI & Abdominal Exam: Soft. absent: Distended, Firm, Guarding, Rebound, Rigid, Tenderness - Extremities Exam Extremities exam: Positive for: normal inspection. Negative for: calf tenderness - Neurological Exam Neurological exam: Alert, Oriented x3 - Skin Skin Exam: Dry, Intact, Normal Color, Warm Results - Vital Signs Recent Vital Signs: Last Vital Signs Temp 98.0 F 03/06/18 01:10 Pulse 66 03/06/18 01:10 Resp 18 03/06/18 01:10 BP 155/100 H 03/06/18 01:10 Pulse Ox 96 03/05/18 23:16 - Labs Result Diagrams: 03/05/18 13:10 03/05/18 13:10 Labs: Laboratory Results - last 24 hr 03/05/18 18:20 Urine Color Yellow Urine Appearance Clear Urine pH 6.0 Ur Specific [place] 1.025 Urine Protein Negative Urine Glucose (UA) Negative Urine Ketones Negative Urine Blood Negative Urine Nitrate Negative Urine Bilirubin Negative Urine Urobilinogen 0.2 Ur Leukocyte Esterase Negative Assessment & Plan - Assessment and Plan (Free Text) Assessment: 63yo M with hx of CLL, here with nonspecific abdominal pain (resolved), and diarrhea. - Abd US noted. Cholelithiasis. Large 2.4cm Gallstone. CBD - 8mm. No Matthews's - Abd/Pelvis CT noted. Hepatomegaly, mild retroperitoneal lymphadenopathy, Cholelithiasis, Diverticulosis - LFTs within normal limits. clinically, low suspicion for biliary colic - Leukocytosis. Consider secondary to hx of CLL Plan: - F/u stool studies - diet as tolerated - further recs as we follow patient's clinical course Further recs as per Dr. Stefan Loera PGY1
[2018-03-06 09:05] VITALS: BP 131/92; PULSE 55; RESP 20; TEMP 98; O2SAT 97
[2018-03-06] MEDS ORDERED: cefTRIAXone 1 gm 1 GM/100 ML BAG IVPB SCH (10:30)
[2018-03-06] MEDS ORDERED: metroNIDAZOLE IV 500 mg/100 ml 500 MG/100 ML BAG IVPB SCH (14:00)
--- NOTE | 2018-03-06 15:19 | HP ---
CHIEF COMPLAINT AND HISTORY OF PRESENT ILLNESS: This is a 63-year-old male who is coming into the hospital complaining of abdominal discomfort. The patient states that he has been having back pain as well. The back pain is chronic. He was given antibiotics in the ER. He states the antibiotics have improved his symptoms. He does not have any abdominal pain anymore. The patient had gone to see Dr. Carr and he was given medications to help with abdominal pain. He has no complaints of any headaches or dizziness, no fevers, no chills, no nausea, no vomiting. He is able to ambulate better. The patient does have a history of bipolar disorder. He is not having any dysuria or frequency. He had an ultrasound done in the ER and he was found to have cholelithiasis with mild dilation of the common bile duct. There were multiple renal cysts. The patient is currently comfortable. He was evaluated by Surgery. They recommended an elective cholecystectomy as an outpatient. He is going to be discharged home today and follow up as an outpatient. ALLERGIES: NO KNOWN DRUG ALLERGIES. PAST MEDICAL HISTORY: Bipolar disorder, ADHD, depression, hypertension. PAST SURGICAL HISTORY: Appendectomy, tonsillectomy. SOCIAL HISTORY: He smokes half pack per day. FAMILY HISTORY: Mother had colon cancer. PHYSICAL EXAMINATION VITAL SIGNS: Temperature is 98, pulse of 66, blood pressure is 155/100, respirations 18. Height is 6 feet. Weight is 243 pounds. BMI is 33. GENERAL: The patient lying in bed, uncomfortable, and in no acute distress. HEENT: Atraumatic and normocephalic. Anicteric sclerae. Moist mucosa. [place] conjunctivae. No oral lesions. NECK: No JVD, anterior and posterior adenopathy, thyromegaly, or bruits. CARDIOVASCULAR: S1 and S2 regular. No murmur, rubs, or gallop. LUNGS: Clear to auscultation bilaterally. No wheezes, rales, or rhonchi. ABDOMEN: Bowel sounds are positive. Soft, nontender and nondistended. No hepatosplenomegaly. No rebound and no guarding EXTREMITIES: No cyanosis, clubbing, or edema. NEUROLOGIC: No facial asymmetry. Tongue is midline. No uvula deviation. Power is 5/5 upper extremity and lower extremity. Sensation intact in upper extremity and lower extremity. PSYCHIATRIC: He is awake, alert and oriented x3. No anxiety or depression. He has normal affect. GENITOURINARY: No CVA tenderness. VASCULAR: 2+ pulses in the carotid pulses and pedal pulses. SKIN: No erythema or nodules. SPINE: Shows normal curvature. LABORATORY DATA: White count of 14.6, hemoglobin 14.3. INR is 0.93. Chemistry shows creatinine is 1, AST is 28, ALT is 35, lipase is 72. Urine shows blood is negative, nitrites are negative, glucose is negative, esterase is negative. Chest x-ray shows no active disease. The patient has CT of the abdomen and pelvis that was reviewed by me shows mild hepatomegaly, cholelithiasis, multiple bilateral renal cysts. ASSESSMENT: 1. Abdominal pain secondary to cholelithiasis, improved. 2. Bipolar disorder. 3. Hypertension. 4. Chronic back pain. 5. Bilateral renal cysts. 6. Smoking. 7. Family history of colon cancer. PLAN: The patient is currently comfortable. The patient is on meropenem for antibiotics. He is on hydrochlorothiazide. He is on lisinopril for hypertension. He is on lithium for his bipolar disorder. He is going to be discharged home today. Follow up as an outpatient. CONDITION: Stable. ACTIVITY: Increase as tolerated. DISPOSITION: Discharged home. Layo Kaur MD
== END 2018-03-06 09:27 | disposition home or self-care (01) ==
LOC: ED 12:07 → INTOOBSV 14:21 → ERH 14:21 → 5RNO 19:54
PROVIDERS: ADMIT Internal Medicine Nephrology; ATTEND Internal Medicine Nephrology
DX: K52.9 Noninfective gastroenteritis and colitis, unspecified (principal); I13.0 Hypertensive heart and chronic kidney disease with heart failure and stage 1 through stage 4 chronic kidney disease, or unspecified chronic kidney disease; I50.9 Heart failure, unspecified; N18.9 Chronic kidney disease, unspecified; K21.9 Gastro-esophageal reflux disease without esophagitis; F41.9 Anxiety disorder, unspecified; F31.9 Bipolar disorder, unspecified; B19.20 Unspecified viral hepatitis C without hepatic coma; J44.9 Chronic obstructive pulmonary disease, unspecified; K80.20 Calculus of gallbladder without cholecystitis without obstruction; F17.210 Nicotine dependence, cigarettes, uncomplicated; N28.1 Cyst of kidney, acquired; G89.29 Other chronic pain; M54.9 Dorsalgia, unspecified; E66.9 Obesity, unspecified; Z68.33 Body mass index [BMI] 33.0-33.9, adult; Z85.6 Personal history of leukemia; Z80.0 Family history of malignant neoplasm of digestive organs
CPT/HCPCS: 71046; 74177; 76700; 80053; 81003; 82803; 83690; 84145; 85025; 85610; 85730; 93005; 96365; 96366; 96375; 96376; 99283; G0378; J1170; J1885; J2185; J7040; Q9967

== ENCOUNTER 2018-08-29 10:12 | Emergency (ER) | payer MEDICARE ==
[2018-08-29 10:19] VITALS: BMI 32.5
--- NOTE | 2018-08-29 10:29 | ED PDOC ---
Arrival/HPI <Griffin Ford - Last Filed: 08/29/18 10:50> - General Historian: Patient EM Caveat: Uncooperative - History of Present Illness Narrative History of Present Illness (Text): 08/29/18 11:14 63 y/o male with PMH of DM, Bipolar Disorder, ADHD, anxiety, depression, COPD, GERD presents to the ED c/o numbness to bilateral lower legs and right elbow swelling x several months. Pt has been referred to orthopedics by his PMD for s welling and redness of his right elbow with intermittent right hand paresthesias but has not followed up. Pt has associated dull intermittent chest pains that occur without inciting factor and reports that he "just doesn't feel well". Pt is non-compliant with all medications, including lithium. Denies SI, HI, hallucinations, delusions, alcohol/drug use, fevers, chills, cough, SOB, cough, syncope, abdominal pain, neck pain, headache, N/V, diarrhea, constipation, weakness, difficulty speaking, difficulty walking, facial droop, vision changes, difficulty swallowing. <Pauline Gamez - Last Filed: 08/29/18 16:14> - General Time Seen by Provider: 08/29/18 10:14 Past Medical History - Provider Review Nursing Documentation Reviewed: Yes - Past History Past History: No Previous - Infectious Disease Hx of Infectious Diseases: None - Tetanus Immunization Tetanus Immunization: Unknown - Cardiac Hx Cardiac Disorders: Yes Hx Angina: Yes Hx Congestive Heart Failure: Yes (pt denies) Hx Hypertension: Yes - Pulmonary Hx Respiratory Disorders: Yes Hx Chronic Obstructive Pulmonary Disease (COPD): Yes Hx Pneumonia: Yes (X2) - Neurological Hx Neurological Disorder: No - HEENT Hx HEENT Disorder: No - Renal Hx Renal Disorder: Yes Hx Kidney Stones: Yes - Endocrine/Metabolic Hx Endocrine Disorders: Yes Hx Diabetes Mellitus Type 2: (pt denies) - Hematological/Oncological Hx Blood Disorders: Yes Hx Hepatitis C: Yes Other/Comment: Leukemia (2017) --> Pt denies any history of CA - Integumentary Hx Dermatological Disorder: No - Musculoskeletal/Rheumatological Hx Musculoskeletal Disorders: Yes Hx Back Pain: Yes Hx Falls: No - Gastrointestinal Hx Gastrointestinal Disorders: Yes Hx Gastroesophageal Reflux: Yes - Genitourinary/Gynecological Hx Genitourinary Disorders: No - Psychiatric Hx Psychophysiologic Disorder: Yes Hx Anxiety: Yes Hx Bipolar Disorder: Yes Hx Depression: Yes Hx Substance Use: No - Past Surgical History Past Surgical History: Non-Contributing - Surgical History Hx Appendectomy: Yes Other/Comment: Tonsillectomy - Anesthesia Hx Anesthesia: Yes - Suicidal Assessment Feels Threatened In Home Enviroment: No <Pauline Gamez - Last Filed: 08/29/18 16:14> Family/Social History - Physician Review Nursing Documentation Reviewed: Yes Family/Social History: No Known Family HX Smoking Status: Light Smoker < 10 Cigarettes Daily Hx Alcohol Use: No Hx Substance Use: No Hx Substance Use Treatment: No <Pauline Gamez - Last Filed: 08/29/18 16:14> Allergies/Home Meds <Griffin Ford - Last Filed: 08/29/18 10:50> <Pauline Gamez - Last Filed: 08/29/18 16:14> Allergies/Adverse Reactions: Allergies No Known Allergies Allergy (Verified 08/29/18 10:27) Home Medications: Home Meds Medication Instructions Recorded Confirmed Lisinopril/Hydrochlorothiazide 12.5 mg PO DAILY 09/13/14 08/29/18 [Lisinopril-Hctz 20-12.5 mg Tab] Montelukast [Singulair] 10 mg PO HS 09/13/14 08/29/18 diaZEpam [Valium] 10 mg PO BID 09/14/15 08/29/18 [place] Carbonate 300MG 900 mg HS 03/05/18 08/29/18 Review of Systems - Physician Review All systems were reviewed & negative as marked: Yes - Review of Systems Systems not reviewed;Unavailable: Uncooperative Constitutional: Normal. absent: Fatigue, Fevers Eyes: Normal. absent: Vision Changes ENT: Normal Respiratory: Normal. absent: SOB, Cough Cardiovascular: Chest Pain (dull intermittent chest pressure ). absent: Palpitations, Edema, Calf Pain, VANN, Orthopnea, Syncope Gastrointestinal: Normal. absent: Abdominal Pain, Stool Changes, Constipation, Diarrhea, Nausea, Vomiting, Appetite Changes, Hematochezia Genitourinary Male: absent: Dysuria, Frequency, Hematuria Musculoskeletal: Normal, Joint Swelling (right elbow). absent: Arthralgias, Back Pain, Neck Pain, Myalgias Skin: Other (swelling, redness right elbow). absent: Rash, Pruritis, Skin Lesions, Laceration, Abscess, Ulcer, Cellulitis Neurological: Other (bilateral feet numbness, intermittent paresthesias and weakness to right hand). absent: Headache, Dizziness, Focal Weakness, Gait Changes, Speech Changes, Facial Droop, Disequilibrium Psychiatric: Anxiety, Depression. absent: Suicidal Ideation <VeraPauline - Last Filed: 08/29/18 16:14> Physical Exam Vital Signs Temp Pulse Resp BP Pulse Ox 08/29/18 10:25 66 18 99 08/29/18 10:18 98.5 F 17 144/89 68 L <JuanGriffin aly - Last Filed: 08/29/18 10:50> Vital Signs Reviewed: Yes Vital Signs Temp Resp BP Pulse Ox 08/29/18 10: 98.5 F 17 144/89 68 L Temperature: Afebrile Blood Pressure: Normal Pulse: Regular Respiratory Rate: Normal Appearance: Positive for: Non-Toxic, Comfortable, Unkept Pain Distress: None Mental Status: Positive for: Alert and Oriented X 3 - Systems Exam Head: Present: Atraumatic, Normocephalic Pupils: Present: PERRL Extroacular Muscles: Present: EOMI Conjunctiva: Present: Normal Mouth: Present: Moist Mucous Membranes Nose (Internal): Present: Normal Inspection Neck: Present: Normal Range of Motion. No: Meningeal Signs, MIDLINE TENDERNESS, Paraspinal Tenderness Respiratory/Chest: Present: Clear to Auscultation, Good Air Exchange. No: Respiratory Distress, Accessory Muscle Use, Wheezes, Decreased Breath Sounds, Rales, Retracting, Rhonchi, Tender to Palpation Cardiovascular: Present: Regular Rate and Rhythm, Normal S1, S2, Peripheal Pulses Present. No: Murmurs Abdomen: Present: Normal Bowel Sounds. No: Tenderness, Distention, Peritoneal Signs, Rebound, Guarding Back: Present: Normal Inspection. No: Midline Tenderness, Paraspinal Tenderness Upper Extremity: Present: Normal ROM, NORMAL PULSES, Tenderness (right elbow bursitis without infection), Swelling (right elbow bursitis without infection), Erythema (right elbow bursitis without infection), Neurovascularly Intact, Capillary Refill < 2s. No: Cyanosis, Edema, Temperature Abnormalties, Deformity Lower Extremity: Present: Normal Inspection, NORMAL PULSES, Normal ROM, Neurovascularly Intact, Capillary Refill < 2 s. No: CALF TENDERNESS, Tenderness, Swelling, Erythema, Deformity, Temperature Abnormalties Neurological: Present: GCS=15, CN II-XII Intact, Speech Normal, Motor Func Grossly Intact (5/5 strength throughout), Normal Sensory Function (sensation intact bilaterally throughout), Normal Cerebellar Funct, Gait Normal, Memory Normal Skin: Present: Warm, Dry, Normal Color, Erythematous (right elbow). No: Rashes, Hot Lymphatic: No: Cervical Adenopathy Psychiatric: Present: Alert, Oriented x 3, Normal Insight, Normal Concentration, Anxious. No: Normal Affect (flight of ideas), Depressed Mood, Suicidal Ideation, Delusional, Hallucinations, Lethargic <Pauline Gamez - Last Filed: 08/29/18 16:14> Medical Decision Making - RAD Interpretation Radiology Orders: 08/29/18 10:33 HEAD W/O CONTRAST [CT] Stat - Medication Orders Current Medication Orders: Sodium Chloride (Sodium Chloride 0.9%) 1,000 mls @ 999 mls/hr IV .Q1H1M STA Stop: 08/29/18 11:37 <Griffin Ford - Last Filed: 08/29/18 10:50> ED Course and Treatment: 08/29/18 10:28 Initial Plan: --EKG --CBC, CMP, Troponin --[place] Level --Head CT --UA, culture --IVF EKG: Rate 65; Normal sinus rhythm; Normal intervals; Normal ST segment, No T wave inversions; No signs of acute ischemia CBC: wnl CMP: wnl Troponin: wnl [place] Level: <0.2 - low UA: wnl CXR: FINDINGS: LUNGS: No active pulmonary disease. PLEURA: No significant pleural effusion identified, no pneumothorax apparent. CARDIOVASCULAR: No atherosclerotic calcification present No radiographic findings to suggest acute or significant cardiovascular disease. OSSEOUS STRUCTURES: No significant abnormalities. VISUALIZED UPPER ABDOMEN: Normal. OTHER FINDINGS: None. IMPRESSION: No active disease. No significant interval change compared to the prior examination(s). Head CT: FINDINGS: HEMORRHAGE: No intracranial hemorrhage. BRAIN: No mass effect or edema. Cortical and cerebellar atrophy, periventricular small vessel disease. VENTRICLES: Unremarkable. No hydrocephalus. CALVARIUM: Unremarkable. PARANASAL SINUSES: Unremarkable as visualized. No significant inflammatory changes. MASTOID AIR CELLS: Unremarkable as visualized. No inflammatory changes. OTHER FINDINGS: None. IMPRESSION: No acute intracranial abnormalities. No significant findings to account for the clinical presentation. No significant interval change compared to the prior examination(s). 08/29/18 13:18 Pt uncooperative and unwilling to leave ED despite normal workup. Demanding to stay in the hospital because he cannot take care of himself at home and "doesn't feel well". Will call for crisis eval secondary to medication non-compliance and psychiatric history. Pt ambulating without difficulty to bathroom. Pt eating lunch tray without difficulty. 08/29/18 14:24 Crisis evaluated pt, psychiatrically cleared for discharge. Discussed thoroughly the importance of followup and medication compliance with pt. Pt understands and agrees. Pt comfortable with discharge home. 08/29/18 14:29 Impression: Olecranon Bursitis Plan: --Take ibuprofen/tylenol for pain --Followup with orthopedic doctor for management of bursitis within 2 days --Followup with psychiatrist within 2 days --Followup with primary doctor within 2 days --Return to ED if symptoms persist or worsen 08/29/18 15:16 <Pauline Gamez - Last Filed: 08/29/18 16:14> NIHSS Scale ([place]) Time Performed: 11:00 - How Severe is the [place]oke Baseline Level of Consciousness: 0=Alert LOC to Questions: 0=Both comments correct LOC to commands: 0=Obeys both correctly Best Gaze: 0=Normal Visual: 0=No visual loss Facial: 0=Normal Motor Arm - Left: 0=No drift Motor Arm - Right: 0=No drift Motor Leg - Left: 0=No drift Motor Leg - Right: 0=No drift Limb Ataxia: 0=Absent Sensory: 0=Normal Best Language: 0=No aphasia Dysarthia: 0=Normal articulation Extinction & Inattention (Neglect): 0=Normal, no object Score: 0 Risk Level: No Stroke Risk <Pauline Gamez - Last Filed: 08/29/18 16:14> - PA / FREE LANCE ARTIST / Resident Statement / has examined the patient and agrees with the treatment plan. <Griffin Ford - Last Filed: 08/29/18 10:50> Disposition/Present on Arrival <Griffin Ford - Last Filed: 08/29/18 10:50> - Present on Arrival Any Indicators Present on Arrival: No History of DVT/PE: No History of Uncontrolled Diabetes: No Urinary Catheter: No History Surgical Site Infection Following: None - Disposition Have Diagnosis and Disposition been Completed?: Yes Disposition Time: 13:00 Patient Plan: Discharge <Pauline Gamez - Last Filed: 08/29/18 16:14> - Disposition Diagnosis: Olecranon bursitis Disposition: HOME/ ROUTINE Condition: GOOD Discharge Instructions (ExitCare): Olecranon Bursitis (DC) Additional Instructions: --Take ibuprofen/tylenol for pain as needed --Followup with orthopedic doctor for management of elbow bursitis within 2 days --Followup with established psychiatrist within 2 days for medication followup --Followup with primary doctor within 2 days --Followup with neurologist for peripheral neuropathy at earliest convenience --Return to ED if symptoms persist or worsen Referrals: Hai Baumann DO [Staff Provider] - Follow up with primary Padmini Evangelista MD [Medical Doctor] - Follow up with primary Vijaya Harper MD [Staff Provider] - Follow up with primary Forms: [employer] (E[place]ian)
[2018-08-29] MEDS ORDERED: Sodium Chloride 0.9% 1,000 ML IV STA (10:37)
[2018-08-29 11:04] LABS: BASO # 0.02 K/mm3 (0.0-2.0); BASO % 0.2 % (0.0-3.0); EOS # 0.1 (0.0-0.7); EOS % 0.8 % (1.5-5.0); GRAN # 4.27 (1.4-6.5); GRAN % 36.8 % (50.0-68.0); HEMOGLOBIN 15.2 g/dL (14.0-18.0); LYMPH # 6.6 (1.2-3.4); LYMPH % 56.9 % (22.0-35.0); MEAN CELL VOLUME 86.8 fl (80.0-105.0); MEAN CORPUSCULAR HEMOGLOBIN 29.9 pg (25.0-35.0); MEAN CORPUSCULAR HGB CONC 34.4 g/dl (31.0-37.0); MEAN PLATELET VOLUME 9.8 fl (7.0-11.0); MONO # 0.6 (0.1-0.6); MONO % 5.3 % (1.0-6.0); RBC 5.09 10^6/uL (3.5-6.1); RED CELL DISTRIBUTION WIDTH 14.4 % (11.5-14.5); WHITE BLOOD COUNT 11.6 10^3/ul (4.5-11.0)
[2018-08-29 11:27] LABS: ALB/GLOB RATIO 1.5 (1.1-1.8); ALBUMIN 4.3 g/dL (3.0-4.8); ALT/SGPT 31 U/L (7-56); AST/SGOT 29 U/L (17-59); BLOOD UREA NITROGEN 18 mg/dL (7-21); CALCIUM 9.8 mg/dL (8.4-10.5); GFR NON-AFRICAN AMERICAN > 60
[2018-08-29 11:38] LABS: TROPONIN I < 0.01 ng/mL
--- NOTE | 2018-08-29 12:31 | CT ---
Date of service: 08/29/2018 PROCEDURE: CT HEAD WITHOUT CONTRAST. HISTORY: headache COMPARISON: 06/29/2013 TECHNIQUE: Axial computed tomography images were obtained through the head/brain without intravenous contrast. Supplemental Coronal and Sagittal projections created and reviewed. Radiation dose: Total exam DLP = 937.45 mGy-cm. This CT exam was performed using one or more of the following dose reduction techniques: Automated exposure control, adjustment of the mA and/or kV according to patient size, and/or use of iterative reconstruction technique. FINDINGS: HEMORRHAGE: No intracranial hemorrhage. BRAIN: No mass effect or edema. Cortical and cerebellar atrophy, periventricular small vessel disease. VENTRICLES: Unremarkable. No hydrocephalus. CALVARIUM: Unremarkable. PARANASAL SINUSES: Unremarkable as visualized. No significant inflammatory changes. MASTOID AIR CELLS: Unremarkable as visualized. No inflammatory changes. OTHER FINDINGS: None. IMPRESSION: No acute intracranial abnormalities. No significant findings to account for the clinical presentation. No significant interval change compared to the prior examination(s).
[2018-08-29 13:02] LABS: URINE BILIRUBIN NEGATIVE (NEGATIVE); URINE BLOOD NEGATIVE (NEGATIVE); URINE GLUCOSE (UA) NEGATIVE (NEGATIVE); URINE LEUKOCYTE ESTERASE NEGATIVE Leu/uL (NEGATIVE); URINE PROTEIN 30 mg/dL (<30 mg/dL); URINE UROBILINOGEN 0.2 E.U./dL (<1 E.U./dL)
[2018-08-29 13:03] LABS: URINE APPEARANCE CLEAR (CLEAR); URINE COLOR YELLOW (YELLOW)
[2018-08-29 13:20] LABS: URINE BACTERIA NEG (NEG); URINE EPITHELIAL CELLS 0 - 2 /hpf (0-5); URINE RBC NEGATIVE /hpf (0-2); URINE WBC 0 - 2 /hpf (0-6)
[2018-08-29 13:25] VITALS: RESP 19
--- NOTE | 2018-08-29 14:10 | RAD ---
Date of service: 08/29/2018 HISTORY: chest pain r/o PNA COMPARISON: 03/05/2018 FINDINGS: LUNGS: No active pulmonary disease. PLEURA: No significant pleural effusion identified, no pneumothorax apparent. CARDIOVASCULAR: No atherosclerotic calcification present No radiographic findings to suggest acute or significant cardiovascular disease. OSSEOUS STRUCTURES: No significant abnormalities. VISUALIZED UPPER ABDOMEN: Normal. OTHER FINDINGS: None. IMPRESSION: No active disease. No significant interval change compared to the prior examination(s).
--- NOTE | 2018-08-29 15:12 | CARD ---
APPROVED REPORT Date of service: 08/29/2018 EKG Measurement Heart [id number] <Conclusion> Normal sinus rhythm Minimal voltage criteria for LVH, may be normal variant Borderline ECG
[2018-08-29 15:30] VITALS: BP 126/53; PULSE 87; TEMP 97.8; O2SAT 99
== END 2018-08-29 15:29 | disposition home or self-care (01) ==
LOC: ED 10:12
DX: M70.21 Olecranon bursitis, right elbow (principal); F17.210 Nicotine dependence, cigarettes, uncomplicated; E11.9 Type 2 diabetes mellitus without complications; J44.9 Chronic obstructive pulmonary disease, unspecified; F90.9 Attention-deficit hyperactivity disorder, unspecified type; I10 Essential (primary) hypertension
CPT/HCPCS: 70450; 71045; 80053; 80178; 81001; 84484; 85025; 87086; 90791; 93005; 96360; 99285; J7030

== ENCOUNTER 2018-12-21 13:26 | Inpatient (IN) | payer MEDICARE ==
[2018-12-21 13:27] VITALS: BMI 32.5
--- NOTE | 2018-12-21 14:09 | ED PDOC ---
Arrival/HPI - General Chief Complaint: Chest Pain Time Seen by Provider: 12/21/18 13:36 Historian: Patient - History of Present Illness Narrative History of Present Illness (Text): 12/21/18 14:00 63 year old male, with past medical history of DM, Bipolar Disorder, ADHD, anxiety, depression, COPD, and GERD, presents to the ED for evaluation of chest pain and right arm pain since past couple weeks. Patient describes a dully achy constant pain associated with mild shortness of breath but no lower extremity swelling. Patient reports visiting Dr. Allen with the presented symptoms and was subsequently referred to the ED for medical evaluation. Patient denies any other associated somatic complaints. Patient denies any trauma, fevers, chills, headache, dizziness, cough, abdominal pain, nausea, vomiting, diarrhea, back pain, neck pain, or any other complaints. Patient admits to smoking cigarettes but denies any drinking. PMD: Dr. Allen Time/Duration: > week Symptom Onset: Gradual Symptom Course: Unchanged Quality: Aching Activities at Onset: Light Context: Home Past Medical History - Provider Review Nursing Documentation Reviewed: Yes - Past History Past History: No Previous - Infectious Disease Hx of Infectious Diseases: None - Tetanus Immunization Tetanus Immunization: Unknown - Cardiac Hx Cardiac Disorders: Yes Hx Angina: Yes Hx Congestive Heart Failure: Yes (pt denies) Hx Hypertension: Yes - Pulmonary Hx Respiratory Disorders: Yes Hx Chronic Obstructive Pulmonary Disease (COPD): Yes Hx Pneumonia: Yes (X2) - Neurological Hx Neurological Disorder: No - HEENT Hx HEENT Disorder: No - Renal Hx Renal Disorder: Yes Hx Kidney Stones: Yes - Endocrine/Metabolic Hx Endocrine Disorders: Yes Hx Diabetes Mellitus Type 2: (pt denies) - Hematological/Oncological Hx Blood Disorders: Yes Hx Hepatitis C: Yes Other/Comment: Leukemia (2017) --> Pt denies any history of CA - Integumentary Hx Dermatological Disorder: No - Musculoskeletal/Rheumatological Hx Musculoskeletal Disorders: Yes Hx Back Pain: Yes Hx Falls: No - Gastrointestinal Hx Gastrointestinal Disorders: Yes Hx Gastroesophageal Reflux: Yes - Genitourinary/Gynecological Hx Genitourinary Disorders: No - Psychiatric Hx Psychophysiologic Disorder: Yes Hx Anxiety: Yes Hx Bipolar Disorder: Yes Hx Depression: Yes Hx Substance Use: No - Past Surgical History Past Surgical History: Non-Contributing - Surgical History Hx Appendectomy: Yes Other/Comment: Tonsillectomy - Anesthesia Hx Anesthesia: Yes - Suicidal Assessment Feels Threatened In Home Enviroment: No Family/Social History - Physician Review Nursing Documentation Reviewed: Yes Family/Social History: No Known Family HX Smoking Status: Heavy Smoker > 10 Cigarettes Daily Hx Alcohol Use: No Hx Substance Use: No Hx Substance Use Treatment: No Allergies/Home Meds Allergies/Adverse Reactions: Allergies No Known Allergies Allergy (Verified 08/29/18 10:27) Home Medications: Home Meds Medication Instructions Recorded Confirmed RX: Lisinopril/Hydrochlorothiazide 12.5 mg PO DAILY 09/13/14 08/29/18 [Lisinopril-Hctz 20-12.5 mg Tab] RX: Montelukast [Singulair] 10 mg PO HS 09/13/14 08/29/18 RX: diaZEpam [Valium] 10 mg PO BID 09/14/15 08/29/18 [place] Carbonate 300MG 900 mg HS 03/05/18 08/29/18 Review of Systems - Physician Review All systems were reviewed & negative as marked: Yes - Review of Systems Constitutional: absent: Fevers Respiratory: SOB. absent: Cough Cardiovascular: Chest Pain Gastrointestinal: absent: Abdominal Pain, Diarrhea, Nausea, Vomiting Genitourinary Male: absent: Dysuria, Hematuria Musculoskeletal: Myalgias (Right Arm pain). absent: Back Pain, Neck Pain Skin: absent: Rash Neurological: absent: Headache, Dizziness Physical Exam Vital Signs Reviewed: Yes Vital Signs Temp Pulse Resp BP Pulse Ox 12/21/18 13:40 99.0 F 64 17 129/85 97 12/21/18 13:39 99.0 F 64 17 129/85 97 Temperature: Afebrile Blood Pressure: Normal Pulse: Regular Respiratory Rate: Normal Appearance: Positive for: Well-Appearing, Non-Toxic, Comfortable Pain Distress: None Mental Status: Positive for: Alert and Oriented X 3 - Systems Exam Head: Present: Atraumatic, Normocephalic Pupils: Present: PERRL Extroacular Muscles: Present: EOMI Conjunctiva: Present: Normal Ears: Present: Normal, NORMAL TM Mouth: Present: Moist Mucous Membranes Pharnyx: Present: Normal. No: ERYTHEMA, EXUDATE Neck: Present: Normal Range of Motion. No: Meningeal Signs Respiratory/Chest: Present: Clear to Auscultation, Good Air Exchange. No: Respiratory Distress, Accessory Muscle Use Cardiovascular: Present: Regular Rate and Rhythm, Normal S1, S2. No: Murmurs Abdomen: No: Tenderness, Distention, Peritoneal Signs Back: Present: Normal Inspection. No: CVA Tenderness, Midline Tenderness Upper Extremity: Present: Normal Inspection, NORMAL PULSES, Neurovascularly Intact. No: Cyanosis, Edema Lower Extremity: Present: Normal Inspection, NORMAL PULSES, Neurovascularly Intact. No: Edema Neurological: Present: GCS=15, CN II-XII Intact, Speech Normal, Motor Func Grossly Intact Skin: Present: Warm, Dry, Normal Color. No: Rashes Psychiatric: Present: Alert, Oriented x 3, Normal Insight, Normal Concentration Medical Decision Making ED Course and Treatment: 12/21/18 14:10 Impression: 63 year old male presents to the ED for evaluation of chest pain and right arm pain. No leg swelling or hx of blood clots, no trauma, recent surgery, or hormonal treatments. No hemoptysis. Sent in by Dr. Allen to rule out ACS. No recent fever. No flu like symptoms. no other complaints other than chest pain. Plan: -- Labs -- EKG -- Reassess and disposition Prior Visits: Notes and results from previous visits were reviewed. Progress Notes: 12/21/18 14:00 EKG reviewed, shows NSR 63, No STEMI. T wave inversion in Lead III. 12/21/18 17:08 labs largely unremarkable except wbc to 16k. Pt afebrile and non tachy, no sore throat, rash or urinary complaints. CXR on my read unremarkable Appreciate consult w/ Dr. Allen- to admit to his service - Scribe Statement The provider has reviewed the documentation as recorded by the Scribe Soniya Chong. All medical record entries made by the Scribe were at my direction and personally dictated by me. I have reviewed the chart and agree that the record accurately reflects my personal performance of the history, physical exam, medical decision making, and the department course for this patient. I have also personally directed, reviewed, and agree with the discharge instructions and disposition. Disposition/Present on Arrival - Present on Arrival Any Indicators Present on Arrival: No History of DVT/PE: No History of Uncontrolled Diabetes: No Urinary Catheter: No History of Decub. Ulcer: No History Surgical Site Infection Following: None - Disposition Have Diagnosis and Disposition been Completed?: Yes Diagnosis: Chest pain Disposition Time: 17:08 Patient Problems: Current Active Problems Problem Status Onset Chest pain Acute Condition: STABLE
[2018-12-21 14:36] LABS: BASO # 0.03 K/mm3 (0.0-2.0); BASO % 0.2 % (0.0-3.0); EOS # 0.2 (0.0-0.7); EOS % 1.4 % (1.5-5.0); HEMOGLOBIN 14.4 g/dL (14.0-18.0); LYMPH # 9.7 (1.2-3.4); MEAN CELL VOLUME 87.7 fl (80.0-105.0); MEAN CORPUSCULAR HEMOGLOBIN 29.5 pg (25.0-35.0); MEAN CORPUSCULAR HGB CONC 33.6 g/dl (31.0-37.0); MEAN PLATELET VOLUME 9.6 fl (7.0-11.0); MONO # 0.9 (0.1-0.6); MONO % 5.8 % (1.0-6.0); RBC 4.88 10^6/uL (3.5-6.1); RED CELL DISTRIBUTION WIDTH 14.6 % (11.5-14.5); WHITE BLOOD COUNT 16.2 10^3/uL (4.5-11.0)
[2018-12-21 14:45] LABS: ALB/GLOB RATIO 1.5 (1.1-1.8); ALBUMIN 4.2 g/dL (3.0-4.8); ALT/SGPT 25 U/L (7-56); AST/SGOT 40 U/L (17-59); BLOOD UREA NITROGEN 25 mg/dL (7-21); CALCIUM 9.8 mg/dL (8.4-10.5); GFR NON-AFRICAN AMERICAN > 60
[2018-12-21 14:57] LABS: B-TYPE NATRIURETIC PEPTIDE 72.6 pg/mL (0-450); TROPONIN I < 0.01 ng/mL
--- NOTE | 2018-12-21 16:47 | RAD ---
Date of service: 12/21/2018 HISTORY: Chest pain COMPARISON: 08/29/2018 TECHNIQUE: Chest PA and lateral FINDINGS: LUNGS: No active pulmonary disease. PLEURA: No significant pleural effusion identified. No pneumothorax apparent. CARDIOVASCULAR: No aortic atherosclerotic calcification present. Normal cardiac size. No pulmonary vascular congestion. OSSEOUS STRUCTURES: No significant abnormalities. VISUALIZED UPPER ABDOMEN: Normal. OTHER FINDINGS: None. IMPRESSION: No active disease. No significant interval change compared to the prior examination(s). Concordant results with the preliminary interpretation rendered by the emergency department physician procedure.
--- NOTE | 2018-12-21 17:06 | CARD ---
APPROVED REPORT Date of service: 12/21/2018 EKG Measurement Heart [id number] <Conclusion> Normal sinus rhythm Normal ECG
[2018-12-22] MEDS ORDERED: Aminophylline 25 mg/ml Inj ONE (11:17)
[2018-12-22] MEDS: Enoxaparin 40 mg Syringe SC SCH (13:53)
[2018-12-22 19:31] VITALS: O2SAT 96
[2018-12-22] MEDS ORDERED: Pneumococcal 23-Valent Vaccine IM ONE (19:41)
[2018-12-22] MEDS ORDERED: Influenza Vaccine 60 mcg/0.5 mL SYR (4YR UP) IM ONE (19:41)
--- NOTE | 2018-12-22 20:08 | CON ---
DATE: 12/22/2018 REASON FOR CONSULTATION: Cardiac evaluation, admitted with chest pain. BRIEF CLINICAL HISTORY: A 63-year-old male with past medical history significant for diabetes, hypertension, anxiety disorder, attention deficit disorder, ADHD, COPD, active tobacco abuse, yesterday went to Dr. Allen complaining of funny sensation, mild chest pain, so the patient send to the ER for admission and evaluation. The patient denies any chest pain, denies any prior episode of chest pain exertion. The patient had his stress test many years ago in the past. PAST MEDICAL HISTORY: Significant for diabetes, bipolar depression, anxiety disorder, depression, COPD and gastroesophageal reflux, as well as attention deficit disorder. PAST SURGICAL HISTORY: Significant for tonsillectomy when he was young, appendectomy when he was in the school. SOCIAL HISTORY: Active tobacco abuse, a pack a day, but denies any history of alcohol abuse or substance abuse. CURRENT MEDICATION: The patient is taking at home Singulair, lithium carbonate 900 mg daily, lisinopril and hydrochlorothiazide 20/12.5, as well as amlodipine. ALLERGIES: NO KNOWN DRUG ALLERGY. PREVIOUS CARDIAC WORKUP: Before that, the patient had a stress test dated 09/14/2015 and the patient had a Lexiscan and at that time she has probably normal myocardial perfusion study, fixed defect noted, no reversible ischemia, ejection fraction of 63%. The patient had also echocardiography done on 07/05/2014 that shows ejection fraction of 65%, trace aortic regurgitation, trace nwkj-ct-aunvzzik regurgitation, tricuspid regurgitation, RV systolic pressure of 19. REVIEW OF SYSTEMS: As per HPI. PHYSICAL EXAMINATION: GENERAL: Height of the patient 6 feet, weight of the patient 240 pounds, body mass index 32.5 kg/m2. VITAL SIGNS: Temperature afebrile, heart rate 77, and blood pressure 152/97. HEENT: PERRLA. Extraocular muscles intact. NECK: Supple. No carotid bruits or thyromegaly. CHEST: Clear to auscultation. HEART: S1 and S2 regular. ABDOMEN: Soft. EXTREMITIES: Clubbing and cyanosis, negative. LABORATORY DATA: EKG shows normal sinus, no acute ST-T changes noted. WBC , hemoglobin 14.4, hematocrit 42.9, and platelet count 211. Chemistry shows sodium 137, potassium 3.9, chloride 103, carbon dioxide 29, anion gap of 9, BUN 25, creatinine 1.0. Troponin 0.01. IMPRESSION: A 63-year-old male with past medical history of diabetes, hypertension, hyperlipidemia, active tobacco abuse, bipolar disorder, attention deficit disorder, came in with the chest pain, given the multiple history of coronary artery disease to suggest echo and a stress test, lipid profile, TSH, hemoglobin A1C. Further recommendation after the stress test. We will follow with you. Thank you Dr. Allen for providing us the opportunity in taking care of the patient, Tuan Davison. Marisela Birch MD
[2018-12-22] MEDS: Insulin Reg-LOW-Coverage SC SCH (21:34)
--- NOTE | 2018-12-22 21:46 | HP ---
DATE OF EXAM: 12/22/2018 HISTORY OF PRESENT ILLNESS: The patient is a 63-year-old male with a past history of type 2 diabetes mellitus and hypertension as well as pulmonary hypertension who presents with precordial chest pain of several days' duration intermittent and nonradiating. The patient denies any shortness of breath. The complains of mild dyspnea on cumu-hk-hyxxptki exertion. There is no diaphoresis. No nausea. No vomiting. The patient was seen in consultation by Cardiology and has been referred for echocardiogram and stress test. CURRENT MEDICATIONS: Includes lisinopril, amlodipine, Singulair and AndroGel. ALLERGIES: THE PATIENT HAS NO KNOWN ALLERGIES. PAST MEDICAL HISTORY: Includes type 2 diabetes mellitus, hypertension, COPD secondary to tobacco, pulmonary hypertension. The patient also has a history of hepatitis C and bipolar disorder. PAST SURGICAL HISTORY: Includes appendectomy. FAMILY HISTORY: Noncontributory. SOCIAL HISTORY: The patient has a history of tobacco use approximately one pack per day for 40 years. No alcohol or drug use. REVIEW OF SYSTEMS: As above. The patient denies any abdominal pain. No nausea, no vomiting, no diarrhea. No melena, no bright red blood per rectum. No jaundice or rash. PHYSICAL EXAMINATION GENERAL: The patient is a well-developed, mildly obese male in no acute distress. VITAL SIGNS: Blood pressure 152/97, pulse 75, temperature 99, respiratory rate 18. HEENT: Head is normocephalic, atraumatic. Pupils equal, round, reactive to light. Extraocular movements intact. NECK: Supple. No thyromegaly. No carotid bruit. No adenopathy. LUNGS: Clear. HEART: Regular rate and rhythm. ABDOMEN: Abdomen: Soft, mildly obese, nontender. Bowel sounds are normoactive. EXTREMITIES: Without cyanosis, clubbing or edema. NEUROLOGIC: The patient is awake and oriented x3 without focal sensory or motor deficits. SKIN: Warm and dry. LABORATORY DATA: WBC 16.2, hemoglobin 14.4, hematocrit 42.8. Sodium 137, potassium 3.9, chloride 103, CO2 29, BUN 25, creatinine 1.0, glucose 113. Troponin is less than 0.01 and BNP is 72.6. Chest x-ray Shows no active disease. IMPRESSION: 1. Chest pain, rule out coronary ischemia/infarct. 2. Type 2 diabetes mellitus. 3. Hypertension. 4. Pulmonary hypertension. 5. Bipolar disorder. 6. Gastroesophageal reflux disease. 7. Chronic obstructive pulmonary disease secondary to tobacco use. PLAN: The patient is scheduled for echocardiogram and stress test, has been seen in consultation by Cardiology, social work for discharge planning. Alonso Allen JD/
[2018-12-23 07:03] LABS: BASO # 0.02 K/mm3 (0.0-2.0); BASO % 0.2 % (0.0-3.0); EOS # 0.2 (0.0-0.7); EOS % 1.5 % (1.5-5.0); LYMPH # 8.2 (1.2-3.4); LYMPH % 64.4 % (22.0-35.0); MEAN CELL VOLUME 89.2 fl (80.0-105.0); MEAN CORPUSCULAR HEMOGLOBIN 29.2 pg (25.0-35.0); MEAN CORPUSCULAR HGB CONC 32.7 g/dl (31.0-37.0); MEAN PLATELET VOLUME 9.9 fl (7.0-11.0); MONO # 0.8 (0.1-0.6); MONO % 5.9 % (1.0-6.0); RBC 4.8 10^6/uL (3.5-6.1); WHITE BLOOD COUNT 12.7 10^3/uL (4.5-11.0)
[2018-12-23] MEDS: Insulin Reg-LOW-Coverage SC SCH ×3 (07:42→17:26)
[2018-12-23 07:50] LABS: LDL CHOLESTEROL 114 mg/dL (0-129)
[2018-12-23 07:58] LABS: ALB/GLOB RATIO 1.5 (1.1-1.8); ALBUMIN 3.9 g/dL (3.0-4.8); ALT/SGPT 25 U/L (7-56); AST/SGOT 30 U/L (17-59); BLOOD UREA NITROGEN 21 mg/dL (7-21); CALCIUM 9.3 mg/dL (8.4-10.5); GFR NON-AFRICAN AMERICAN > 60; HDL CHOLESTEROL 23 mg/dL (29-60)
--- NOTE | 2018-12-23 09:08 | CP.PCM.PN ---
Subjective - Date & Time of Evaluation Date of Evaluation: 12/23/18 Time of Evaluation: 09:00 - Subjective Subjective: c/o dull precordial intermittent chest discomfort, denies SOB Objective - Vital Signs/Intake and Output Vital Signs (last 24 hours): Temp Pulse Resp BP Pulse Ox 98.9 F 58 L 19 147/97 H 96 12/23/18 06:00 12/23/18 06:00 12/23/18 06:00 12/23/18 06:00 12/22/18 21:04 Intake and Output: 12/23/18 12/23/18 06:59 18:59 Intake Total 360 Output Total 1000 Balance -640 - Medications Medications: Current Medications Amlodipine Besylate (Norvasc) 5 mg PO DAILY REPLACED BY [facility] Last Admin: 12/22/18 13:53 Dose: 5 mg Aspirin (Aspirin Chewable) 81 mg PO DAILY REPLACED BY [facility] Last Admin: 12/22/18 13:53 Dose: 81 mg Enoxaparin Sodium (Lovenox) 40 mg SC DAILY REPLACED BY [facility]; Protocol Last Admin: 12/22/18 13:53 Dose: 40 mg Hydrochlorothiazide (Microzide) 12.5 mg PO DAILY REPLACED BY [facility] Last Admin: 12/22/18 13:53 Dose: 12.5 mg Insulin Human Regular (Humulin R Low) 0 units [facility]; Protocol Last Admin: 12/23/18 07:42 Dose: Not Given Lisinopril (Zestril) 20 mg PO DAILY REPLACED BY [facility] - Labs Labs: 12/23/18 06:30 12/23/18 06:30 - Respiratory Exam Respiratory Exam: Clear to Ausculation Bilateral, NORMAL BREATHING PATTERN - Cardiovascular Exam Cardiovascular Exam: REGULAR RHYTHM - GI/Abdominal Exam GI & Abdominal Exam: Soft, Normal Bowel Sounds - Extremities Exam Extremities Exam: Normal Inspection - Neurological Exam Neurological Exam: Alert, Awake - Skin Skin Exam: Dry, Warm Assessment and Plan (1) Chest pain Status: Acute (2) Hypertension Status: Chronic - Assessment and Plan (Free Text) Plan: await results stress test and ECHO
[2018-12-23] MEDS ORDERED: Potassium Chloride 20 mEq ER Tab PO ONE (09:54)
[2018-12-23] MEDS: Enoxaparin 40 mg Syringe SC SCH (10:16)
[2018-12-23 12:41] VITALS: BP 144/88; PULSE 54; RESP 18; TEMP 97.7
--- NOTE | 2018-12-23 13:33 | CARD ---
APPROVED REPORT Date of service: 12/22/2018 Protocol: LEXISCAN Test Type: Lexiscan Sestamibi Stress Test Attending Physician: Dr. Marisela Costa Referring Physician: Dr. Alonso Allen Test Indications: Chest Pain Height:6 ft 0 in Weight:240lbs Medications: LITHIUM, SINGULAIR, VALIUM LISINOPRIL/HCTZ Medical History: 63 YEAR OLD MALE WITH H/O HTN, HIGH CHOLESTEROL, COPD, CHF, DIABETES, HYPOTHYROID AND HEPATITIS C, Target HR: 157 bpm Resting ECG: RSR. Resting Heart Rate: 56 bpm Resting Blood Pressure: 142/86mmHg Submaximum (85%): 133 bpm PROCEDURE Pharmacologic stress testing was performed using 0.4mg per 5ml of regadenoson given intravenously over 7-10 seconds. Reversal agent aminophyline 100 mg, given intravenously for Dyspnea. POST EXERCISE Reason for Termination: Protocol completed Target HR: No Max HR: 57 bpm 47% of Maximum Predicted HR: 157 bpm Exercise duration: 00:30 min:sec, 0 Stage Exercise capacity: 1.0METs Max Blood Pressure: 142/86mmHg Blood Pressure response to exercise: normal resting BP - appropriate response Heart Rate response to exercise: appropriate Chest Pain: Yes, Dull Pain Chest Before, during and Post Exercise Test. Angina index: 0 Arrhythmia: No, none ST Change: No, none Deviation: 0 mm TEST SUMMARY [id number]. INFUSIONDOSE 100:[id number]/.0. [id number]:460.00.01.0./.0. INTERPRETATION Stress EKG Conclusion: IV LEXISCAN NUCLEAR STRESS TEST DUIRING WHICH PATIENT HAD DULL PAIN IN CHEST BEFORE, DURING AND POST STRESS TEST. NO ST-T CHANGES SEEN. NUCLEAR SCAN REPORT PENDING. Signed by Marisela Costa Electronically Approved: 12/22/2018 12:22:13 EXAM: Myocardial Perfusion REST/STRESS Stress Test Type: Pharmacologic Imaging Protocol The imaging protocol used to acquire images was Rest Tc-99m/stress Tc-99m 1 day Rest Spect myocardial perfusion imaging was performed in supine position 45 minutes following the injection of 10.9 mCi of Tc-99 Myoview. At peak stress, the patient was injected intravenously with 30.4mCi of Tc-99 tetrofosmin after an infusion time of 0 minutes and 10 seconds. Gated Stress Spect was performed 80 minutes after intravenous Tc-99 Myoview injection. The images were gated to evaluate regional wall motion and calculate ventricular ejection fraction.Images were reconstructed using backfilter projection method in short horizontal and verticle long axis. Spect slices were generated. LV Perfusion The quality of the study is good. The left ventricle is mildly enlarged in size with thickened myocardium. The right ventricle is unremarkable. The lung uptake is normal. The distribution of tracer reveals mildly and diffusely decreased perfusion in the inferior wall on the stress study. The remainder of the LV myocardium is unremarkable. The rest myocardial perfusion study shows no significant change. Wall Motion Wall motion study shows good contractility of the left ventricle. LVEF = 65%. Conclusion 1. Essentially normal SPECT myocardial perfusion study. 2. Fixed, inferior defect is most likely due to diaphrgmatic attenuation. 3. Normal gated wall motion and thicknening of the left ventricle. 4. In comparison with the last study of 09/14/2015, there is no significant change.
--- NOTE | 2018-12-23 15:20 | PN ---
DATE: 12/23/2018 REASON FOR CONSULTATION: Cardiac evaluation, admitted with chest pain. SUBJECTIVE: The patient denies any chest pain, shortness of breath, or any palpitation. OBJECTIVE: GENERAL: Not in apparent distress. VITAL SIGNS: Temperature afebrile, heart rate 56, and blood pressure 147/90. HEENT: PERRLA. Extraocular muscles intact. NECK: Supple. No carotid bruit, no thyromegaly. CHEST: Clear to auscultation. HEART: S1 and S2 regular. ABDOMEN: Soft. EXTREMITIES: Clubbing and cyanosis negative. LABORATORY DATA: Blood workup as follows: WBC 12.7, hemoglobin 14, hematocrit 42.8, and platelet count 209. Chemistry shows sodium 141, potassium 3.8, chloride 106, carbon dioxide 29, anion gap of 9, BUN 21, and creatinine 1.1. Triglycerides 309, cholesterol 196, LDL 114, HDL 23, TSH 2.88. IMPRESSION: A 63-year-old male, active tobacco abuse, history of stress test in 2014, admitted with chest pain and continuous dull pain. Yesterday underwent stress test, result pending; also underwent an echo, results pending. The patient had a history of hypertension, was taking at home amlodipine and lisinopril. Pressure is still up. We will increase lisinopril to 20 mg daily and amlodipine we will increase to 10 mg daily. We will follow with you. We are waiting for the stress test to be read officially. Thank you, Dr. Allen, for providing us the opportunity in taking care of the patient, Tuan Davison. Further recommendation depend upon the finding of the stress test. Marisela Birch MD
--- NOTE | 2018-12-23 18:37 | CARD ---
APPROVED REPORT Date of service: 12/22/2018 EXAM: Two-dimensional and M-mode echocardiogram with Doppler and color Doppler. INDICATION LVFX/CP 2D DIMENSIONS Left Atrium (2D)4.1 (1.6-4.0cm)IVSd1.1 (0.7-1.1cm) LVDd5.1 (3.9-5.9cm)PWd1.3 (0.7-1.1cm) LVDs3.3 (2.5-4.0cm)FS (%) 35.4 % LVEF (%)64.6 (>50%) M-Mode DIMENSIONS Aortic Root3.80 (2.2-3.7cm)Aortic Cusp Exc.2.10 (1.5-2.0cm) Aortic Valve AoV Peak Xdvwlldl800.0cm/Mila Peak GR.10mmHg Mitral Valve MV E Qhptiaqv91.3cm/sMV A Fbskarbm600.0cm/sE/A ratio0.7 TDI Lateral E' Peak V8.41cm/sMedial E' Peak V6.14cm/sE/Lateral E'9.0 E/Medial E'12.3 Pulmonary Valve PV Peak Tfwswpik87.7cm/sPV Peak Grad.4mmHg Tricuspid Valve TR Peak Dkpiqysb735gj/sRAP FPUWAICB62hkZtHG Peak Gr.14mmHg VTLK65whKm LEFT VENTRICLE The left ventricle is normal size. There is mild concentric left ventricular hypertrophy. The left ventricular function is normal.EF-60-65% There is normal LV segmental wall motion. Transmitral Doppler flow pattern is Grade III-reversible restrictive diastolic dysfunction. No left ventricle thrombus noted on this study. There is no ventricular septal defect visualized. There is no left ventricular aneurysm. There is no mass noted in the left ventricle. RIGHT VENTRICLE The right ventricle is normal size. There is normal right ventricular wall thickness. The right ventricular systolic function is normal. ATRIA The left atrium is borderline dilated. The right atrium size is normal. The interatrial septum is intact with no evidence for an atrial septal defect. AORTIC VALVE The aortic valve is mildly thickened but opens well. Trivial AR. There is no aortic valvular stenosis. There is no aortic valvular vegetation. MITRAL VALVE The mitral valve is thickened but opens well. Mitral regurgitation is trace. There is no mitral valve stenosis. There is no evidence of mitral valve prolapse. TRICUSPID VALVE The tricuspid valve is normal in structure. There is trace tricuspid regurgitation.RVSP_24 mmof hg. There is no pulmonary hypertension. There is no tricuspid valve stenosis. There is no tricuspid valve prolapse or vegetation. PULMONIC VALVE The pulmonary valve is normal in structure. There is no pulmonic valvular regurgitation. There is no pulmonic valvular stenosis. GREAT VESSELS The aortic root is normal in size. The ascending aorta is normal in size. The pulmonary artery is normal. The IVC is normal in size and collapses >50% with inspiration. PERICARDIAL EFFUSION There is no pleural effusion. There is no pericardial effusion. <Conclusion> The left ventricle is normal size. There is mild concentric left ventricular hypertrophy. The left ventricular function is normal.EF-60-65% Trivial AR. Mitral regurgitation is trace. There is trace tricuspid regurgitation.RVSP_24 mmof hg. There is no pulmonary hypertension. The IVC is normal in size and collapses >50% with inspiration. There is no pericardial effusion. No Vegetation or thrombus noted.
--- NOTE | 2018-12-24 21:05 | DS ---
HOSPITAL COURSE The patient is a 63-year-old male, admitted through the emergency department on 12/21/2018 with precordial chest pain. The patient was seen in consultation by Cardiology, Dr. Birch, stress test and echocardiogram ordered the patient was admitted to telemetry. The patient had an uneventful hospital course, had a negative stress test and was discharged to home in stable condition on 12/23/2018. PHYSICAL EXAMINATION: VITAL SIGNS: As per progress note of 12/23/2018. IMPRESSION: 1. Atypical chest pain. 2. Type 2 diabetes mellitus. 3. Hypertension. 4. Pulmonary hypertension. 5. Bipolar disorder. 6. Gastroesophageal reflux disease. 7. Chronic obstructive pulmonary disease secondary to tobacco use. PLAN: The patient was discharged to home on the following medications, lisinopril 10 mg daily amlodipine 5 mg daily, Singulair 10 mg daily, and Wellbutrin XL. The patient was discharged on a consistent carbohydrate low-sodium diet. Activities ad libitum. He will be followed as an outpatient in the office within next 1-2 weeks. CICI Kessler MD
== END 2018-12-23 20:00 | disposition home or self-care (01) | DRG 313 ==
LOC: ED 13:26 → ERH 17:07 → 2RNO 12-22 21:08
PROVIDERS: ADMIT Internal Medicine; ATTEND Internal Medicine
DX: R07.9 Chest pain, unspecified (principal); J44.9 Chronic obstructive pulmonary disease, unspecified; F90.9 Attention-deficit hyperactivity disorder, unspecified type; F31.9 Bipolar disorder, unspecified; E11.9 Type 2 diabetes mellitus without complications; M79.601 Pain in right arm; F41.9 Anxiety disorder, unspecified; F17.210 Nicotine dependence, cigarettes, uncomplicated; I10 Essential (primary) hypertension; B19.20 Unspecified viral hepatitis C without hepatic coma; I25.10 Atherosclerotic heart disease of native coronary artery without angina pectoris; I27.20 Pulmonary hypertension, unspecified; E78.5 Hyperlipidemia, unspecified; K21.9 Gastro-esophageal reflux disease without esophagitis; Z85.6 Personal history of leukemia; Z87.01 Personal history of pneumonia (recurrent); Z87.442 Personal history of urinary calculi; Z90.49 Acquired absence of other specified parts of digestive tract; E03.9 Hypothyroidism, unspecified; E78.00 Pure hypercholesterolemia, unspecified